=== PATIENT | female | born 1980 | race Caucasian/White ===

== ENCOUNTER → 2019-12-20 10:23 | Outpatient (BNVA) | payer MEDICAID, SELFPAY | PROVIDERS: Visit Provider Obstetrics & Gynecology | DX: Z32.01 Encounter for pregnancy test, result positive (principal) | CPT/HCPCS: 84702 ==

== ENCOUNTER 2020-02-23 09:58 | Emergency (ER) | payer MEDICAID, SELFPAY ==
[2020-02-23 10:00] VITALS: BP 141/88; PULSE 85; RESP 18; TEMP 36.4; O2SAT 97; BMI 32.8
--- NOTE | 2020-02-23 10:09 | W.ED.ABDPA2 ---
HPI - Abdominal Pain General: Chief Complaint: Abdominal Pain Stated Complaint: RUQ PAIN Time Seen by Provider: 02/23/20 10:06 History of Present Illness: HPI narrative: Patient is a 39-year-old female comes to the ED with abdominal pain, nausea vomiting and diarrhea. Abdominal pain started over 3 months ago. Abdominal pain is in the right upper quadrant of the abdomen. She says it gets worse whenever she eats or drinks anything. She currently rates the pain a 6 out of 10. She started developing diarrhea after she eats food for the past couple days. Patient says she decided to come in today because she is getting tired of dealing with the pain nausea, vomiting and diarrhea right after she eats. Denies fever, chills, chest pain, shortness of breath, dysuria or hematuria. Denies any vaginal bleeding and states that she is 3 days late on her period. Associated Symptoms: Reports diarrhea, nausea and vomiting; Denies chills, constipation, dysuria, fever(s), hematochezia and hematuria Review of Systems Const: Denies: fever(s), chills or fatigue Eyes: Denies: change in vision or eye discomfort ENMT: Denies: throat pain, odynophagia, nasal discharge or nasal congestion Card: Denies: chest pain, palpitations, edema, swelling of feet/ankles, dyspnea on exertion or orthopnea Resp: Denies: dyspnea, productive cough or non-productive cough GI: Reports: abdominal pain, nausea, vomiting and diarrhea; Denies: constipation or hematochezia : Denies: flank pain, dysuria or hematuria Musc: Denies: neck pain, back pain or extremity swelling Skin/Breast: Denies: rash or new lesions Neuro: Denies: headache(s), numbness in extremities or weakness in extremities Physical Exam Const: COMMON NORMALS: no acute distress, patient oriented x3 and alert GENERAL APPEARANCE: cooperative and comfortable NUTRITIONAL APPEARANCE: overweight HENMT: COMMON NORMALS: normocephalic HEAD & SCALP: normocephalic MOUTH: Normal oral and palatal mucosa present THROAT: posterior oropharynx normal and uvula midline Eye: COMMON NORMALS: Equal, round and reactive pupils present PUPIL: Yes Equal, round and reactive pupils present Neck/C-Spine: COMMON NORMALS: supple GENERAL: Yes normal visual inspection Resp: COMMON NORMALS: normal respiratory effort, No retractions, No use of accessory muscles and clear to auscultation bilaterally AUSCULTATION: clear to auscultation bilaterally Cardio: COMMON NORMALS: regular rate, regular rhythm, S1 normal heart sound present, S2 normal heart sound present, No gallops present (Cardio), No clicks present (Cardio), No murmurs present (Cardio) and Peripheral pulses 2+ throughout RATE: regular rate RHYTHM: regular rhythm HEART SOUNDS: S1 normal heart sound present and S2 normal heart sound present PERIPHERAL PULSES: Peripheral pulses 2+ throughout GI: COMMON NORMALS: Normal to inspection, nondistended, normoactive bowel sounds present, Soft to palpation and no masses PALPATION: Yes Soft to palpation and Yes Tenderness to palpation present (GI) Details: RUQ (Positive Cho's test. No peritoneal signs) : COMMON NORMALS: Yes no CVA tenderness BLADDER/KIDNEY EXAM: Yes no CVA tenderness Back/Pelvis: COMMON NORMALS: no CVA tenderness Extremity: COMMON NORMALS: normal to inspection and no pedal edema Neuro: COMMON NORMALS: patient oriented x3 SENSORIUM/ORIENTATION: Yes alert GAIT: Yes Normal gait present Skin: GENERAL SKIN EXAM: dry skin Course Reevaluation(s): Reevaluation #1: After patient received IV fluids, Zofran and morphine her symptoms greatly improved. I went in and told patient to about lab results and positive test. Patient seemed excited about positive test. She stated she will contact her OB doctor after discharge to set up an appointment. Vital Signs: Vital signs: Vital Signs Temperature 97.5 F L 02/23/20 10:00 Pulse Rate 86 02/23/20 12:43 Respiratory Rate 18 02/23/20 12:43 Blood Pressure 135/87 02/23/20 12:43 Pulse Oximetry 98 02/23/20 12:43 MDM - Abdominal Pain MDM Narrative: Medical decision making narrative: Patient is a 39-year-old female who comes to the ED with right upper quadrant abdominal pain, nausea/vomiting and diarrhea. Patient says she has been having the symptoms for over 3 months. Patient had positive Cho sign. CBC, CMP and UA were unremarkable. Lipase 38 and hCG was positive. Ultrasound of the gallbladder showed no bladder wall thickening and normal common bile duct. Patient was diagnosed with biliary colic and positive test. Patient was given IV fluids, Zofran and morphine while here in the ED and her symptoms greatly improved. I placed an order with case management patient follow-up with general surgery. I told patient to contact her OB doctor after discharge to set up an appointment. Patient was discharged with Mirella and she stated she did not want any narcotic pain meds since she is . She says she will just take Tylenol for any biliary colic. Return to ED precautions given. Patient understood and agree with plan. Lab Data: Attestation: I reviewed the patient's lab results. Labs: Lab Results 02/23/20 02/23/20 02/23/20 Range/Units 11:20 11: 11:20 WBC 7.3 (4.0-10.0) 10^3/ uL RBC 4.83 (4.1-5.3) 10^6/u L Hgb 12.3 (11.5-15.3) g/dL Hct 38.5 (37.0-47.0) % MCV 79.7 L (81-99) fL MCH 25.5 L (28.0-34.0) pg MCHC 31.9 (30.0-36.0) g/dL RDW 15.7 H (12.1-15.1) % Plt Count 259 (130-400) 10^3/c mm MPV 11.5 H (7.4-10.4) fL Neut % (Auto) 54.6 % Lymph % (Auto) 33.4 % Randall % (Auto) 9.5 % Eos % (Auto) 1.4 % Baso % (Auto) 0.8 % Neut # (Auto) 4.00 (1.8-7.7) 10^3/u L Lymph # (Auto) 2.5 (0.8-4.8) 10^3/u L Randall # (Auto) 0.7 (0.2-0.9) 10^3/u L Eos # (Auto) 0.1 (0.0-0.8) 10^3/u L Baso # (Auto) 0.1 (0.0-0.1) 10^3/u L Nucleated RBC % (a uto) 0 % Nucleated RBCs # 0.0 /100WBC Sodium 135 L (136-145) mmol/L Potassium 4.0 (3.5-5.1) mmol/L Chloride 102 (98-107) mmol/L Carbon Dioxide 25 (22-29) mmol/L Anion Gap 12.0 (5-19) BUN 10 (6-20) mg/dL Creatinine 0.7 (0.5-0.9) mg/dL GFR Calculation 93.2 (90-130) mL/min Glucose 96 (65-115) mg/dL Calculated Osmolal ity 279 L (285-295) mOsm/k g Calcium 9.1 (8.5-10.5) mg/dL Total Bilirubin 0.5 (0.15-1.2) mg/dL AST 17 (0-32) U/L ALT 18 (0-33) U/L Alkaline Phosphata se 79 (35-105) IU/L Total Protein 6.6 (6.6-8.7) g/dL Albumin 4.0 (3.5-5.2) g/dL Globulin 2.6 (1.3-4.6) g/dL Lipase 38 (13-60) U/L HCG, Qual Positive H (Negative) Urine Color (Yellow) Urine Appearance (CLEAR) Urine pH (5-7) Ur Specific Gravit y (1.005-1.030) Urine Protein (Negative) Urine Glucose (UA) (Normal) Urine Ketones (Negative) Urine Blood (Negative) Urine Nitrate (Negative) Urine Bilirubin (Negative) Urine Urobilinogen (Negative) mg/dL Ur Leukocyte Jennifer ase (Negative) Urine RBC (0-2) /hpf Urine WBC (0-5) /hpf Ur Squamous Epith Cells (0-5) /hpf Amorphous Sediment Urine Bacteria (NONE) /hpf 02/23/20 Range/Units 11:25 WBC (4.0-10.0) 10^3/ uL RBC (4.1-5.3) 10^6/u L Hgb (11.5-15.3) g/dL Hct (37.0-47.0) % MCV (81-99) fL MCH (28.0-34.0) pg MCHC (30.0-36.0) g/dL RDW (12.1-15.1) % Plt Count (130-400) 10^3/c mm MPV (7.4-10.4) fL Neut % (Auto) % Lymph % (Auto) % Randall % (Auto) % Eos % (Auto) % Baso % (Auto) % Neut # (Auto) (1.8-7.7) 10^3/u L Lymph # (Auto) (0.8-4.8) 10^3/u L Randall # (Auto) (0.2-0.9) 10^3/u L Eos # (Auto) (0.0-0.8) 10^3/u L Baso # (Auto) (0.0-0.1) 10^3/u L Nucleated RBC % (a uto) % Nucleated RBCs # /100WBC Sodium (136-145) mmol/L Potassium (3.5-5.1) mmol/L Chloride (98-107) mmol/L Carbon Dioxide (22-29) mmol/L Anion Gap (5-19) BUN (6-20) mg/dL Creatinine (0.5-0.9) mg/dL GFR Calculation (90-130) mL/min Glucose (65-115) mg/dL Calculated Osmolal ity (285-295) mOsm/k g Calcium (8.5-10.5) mg/dL Total Bilirubin (0.15-1.2) mg/dL AST (0-32) U/L ALT (0-33) U/L Alkaline Phosphata se (35-105) IU/L Total Protein (6.6-8.7) g/dL Albumin (3.5-5.2) g/dL Globulin (1.3-4.6) g/dL Lipase (13-60) U/L HCG, Qual (Negative) Urine Color Yellow (Yellow) Urine Appearance Clear (CLEAR) Urine pH 7 (5-7) Ur Specific Gravit y 1.010 (1.005-1.030) Urine Protein Neg (Negative) Urine Glucose (UA) Norm (Normal) Urine Ketones Negative (Negative) Urine Blood Neg (Negative) Urine Nitrate Negative (Negative) Urine Bilirubin Neg (Negative) Urine Urobilinogen Neg (Negative) mg/dL Ur Leukocyte Jennifer ase Negative (Negative) Urine RBC None (0-2) /hpf Urine WBC 0-4 H (0-5) /hpf Ur Squamous Epith Cells 25-40 H (0-5) /hpf Amorphous Sediment Not Reportable Urine Bacteria 3+ H (NONE) /hpf Imaging Data ^: US: Attestation: I personally reviewed and interpreted this imaging study as follows: Radiologist's impression: [address] [place] [address] Ultrasound Report Signed Patient: Miriam Briscoe Unit #: [id number] : [id number] Age/Sex: 39 / F ADM Date: 02/23/20 Loc: ER Room/Bed: Attending Dr: Ordering Provider/Ordering MD: Joey Goss Date of Service: 02/23/20 Procedure(s): US gall bladder 61883 Accession Number(s): [id number] Report Number: [id number] WS: [id number] ULTRASOUND ABDOMEN LIMITED CLINICAL INFORMATION: RUQ pain COMPARISON: None. FINDINGS: Liver Size: Normal. Craniocaudal length: 15.6 cm. Echogenicity: Diffuse fatty infiltration Surface nodularity: None. Mass (size and location): None. Bile ducts Intrahepatic ducts: Normal. Common bile duct diameter: 0.5 cm. Gallbladder Contracted Gallstones: None. Gallbladder sludge: None. Gallbladder wall thickening: None. Pericholecystic fluid: None. Sonographic Cho sign: Absent. Pancreas Normal as visualized. Right kidney: Normal. Hydronephrosis: None. Size: 11.4 cm x 5.7 cm x 4.8 cm. Abdominal aorta and IVC Visualized portions are normal. Ascites: None. US/US gall bladder [id number] IMPRESSION: 1. Diffuse fatty infiltration the liver. 2. No hydronephrosis in right kidney. 3. Gallbladder is contracted. No wall thickening or edema. Normal common bile duct. Dictated By: Pedro De Dios MD Signed By: Pedro De Dios MD Signed Date/Time: 02/23/20 1102 DD/ 1056 Discharge Plan Discharge Patient Disposition: Home Clinical Impression: Biliary colic, Positive blood test Condition: Stable Prescriptions: New Zofran 4 mg tablet 4 mg PO Q8H Qty: 30 RF: 0 No Action omeprazole 20 mg Capsule,Delayed Release(Dr/Ec) 20 mg PO DAILY RF: 0 Lexapro 20 mg Tablet 20 mg PO DAILY RF: 0 Discharge Orders: Discharge Order (Routine); Ordered 02/23/20 Ordered By: Joey Goss Referrals: [facility] [Other] Discharge Diet: Advance as tolerated Discharge Activity: Increase activity as tolerated Patient Instructions: (ED), Biliary Colic (ED) Activity Restrictions/Additional Instructions: Follow-up with medical provider as directed. Case management should be contacting you in the next several days set up an appointment with general surgery. Contact OB doctor to set up appointment for evaluation for positive test. take medications as prescribed. Take Tylenol for pain. Return to the ER or your medical provider if condition worsens. Please read and understand discharge instructions. If any questions, please ask. Discharge Date/Time: 02/23/20 12:44 Coding Level of Care Code ED [employer] for Jj Fwd Exam Comprehensive
--- NOTE | 2020-02-23 10:15 | US_ITS ---
WS: [id number] ULTRASOUND ABDOMEN LIMITED CLINICAL INFORMATION: RUQ pain COMPARISON: None. FINDINGS: Liver Size: Normal. Craniocaudal length: 15.6 cm. Echogenicity: Diffuse fatty infiltration Surface nodularity: None. Mass (size and location): None. Bile ducts Intrahepatic ducts: Normal. Common bile duct diameter: 0.5 cm. Gallbladder Contracted Gallstones: None. Gallbladder sludge: None. Gallbladder wall thickening: None. Pericholecystic fluid: None. Sonographic Cho sign: Absent. Pancreas Normal as visualized. Right kidney: Normal. Hydronephrosis: None. Size: 11.4 cm x 5.7 cm x 4.8 cm. Abdominal aorta and IVC Visualized portions are normal. Ascites: None. US/US gall bladder [id number] IMPRESSION: 1. Diffuse fatty infiltration the liver. 2. No hydronephrosis in right kidney. 3. Gallbladder is contracted. No wall thickening or edema. Normal common bile duct.
[2020-02-23] MEDS: sodium chloride 0.9% 1,000 ML 999 ML IV (11:29)
[2020-02-23] MEDS: ondansetron 2 mg/ML SDV 2 mL 4 MG IVP (11:32)
[2020-02-23 11:34] VITALS: RESP 20; O2SAT 99
[2020-02-23] MEDS: morphine 4 mg/mL SDV 1 mL 2 MG IVP (11:34)
[2020-02-23 11:52] LABS: Basophils # 0.1 10^3/uL (0.0-0.1); Basophils % 0.8 %; Eosinophils # 0.1 10^3/uL (0.0-0.8); Eosinophils % 1.4 %; Hematocrit 38.5 % (37.0-47.0); Hemoglobin 12.3 g/dL (11.5-15.3); Lymphocytes # 2.5 10^3/uL (0.8-4.8); Lymphocytes % 33.4 %; Mean Corpuscular HGB Conc 31.9 g/dL (30.0-36.0); Mean Corpuscular Hemoglobin 25.5 pg (28.0-34.0); Mean Corpuscular Volume 79.7 fL (81-99); Mean Platelet Volume 11.5 fL (7.4-10.4); Monocytes # 0.7 10^3/uL (0.2-0.9); Monocytes % 9.5 %; Neutrophils % 54.6 %; Nucleated Red Blood Cells % 0 %; Platelet Count 259 10^3/cmm (130-400); Red Blood Count 4.83 10^6/uL (4.1-5.3); Red Cell Distribution Width 15.7 % (12.1-15.1); White Blood Count 7.3 10^3/uL (4.0-10.0)
[2020-02-23 12:08] LABS: HCG, Serum Qual Positive (Negative)
[2020-02-23 12:11] LABS: Bilirubin Urine Neg (Negative); Blood Urine Neg (Negative); Glucose Urine UA Norm (Normal); Ketones Urine Negative (Negative); Leukocyte Esterase Urine Negative (Negative); Nitrate Urine Negative (Negative); Protein Urine Neg (Negative); Urine Appearance Clear (CLEAR); Urine Color Yellow (Yellow); Urobilinogen Urine Neg (Negative); pH Urine 7 (5-7)
[2020-02-23 12:12] LABS: Alanine Aminotransferase 18 U/L (0-33); Alkaline Phosphatase 79 IU/L (35-105); Aspartate Amino Transferase 17 U/L (0-32); Blood Urea Nitrogen 10 mg/dL (6-20); Calcium 9.1 mg/dL (8.5-10.5); Carbon Dioxide 25 mmol/L (22-29); Chloride 102 mmol/L (98-107); Globulin 2.6 g/dL (1.3-4.6); Glomerular Filtration Rate 93.2 mL/min (90-130); Glucose 96 mg/dL (65-115); Lipase 38 U/L (13-60); Osmolality Calculated 279 mOsm/kg (285-295); Sodium 135 mmol/L (136-145); Total Bilirubin 0.5 mg/dL (0.15-1.2); Total Protein 6.6 g/dL (6.6-8.7)
[2020-02-23 12:17] LABS: Add Urine Culture? No; Bacteria Urine 3+ /hpf; Squamous Epithelial Cell Urine 25-40 /hpf (0-5); WBC Urine 0-4 /hpf (0-5)
--- NOTE | 2020-02-23 12:24 | DCPLANNER ---
project construction manager was asked to refer patient to general surgery. project construction manager emailed [facility] with patient referral. Patients information will be printed and reviewed. Clinic will call patient with appointment information.
[2020-02-23 12:43] VITALS: BP 135/87; PULSE 86; RESP 18; O2SAT 98
--- NOTE | 2020-02-25 13:21 | DCPLANNER ---
integrated logistics support manager called [facility] to confirm if a follow up appointment had been scheduled for patient. integrated logistics support manager was told that clinic called patient to schedule a follow up appointment, and patient declined appointment at this time.
== END 2020-02-23 12:44 | disposition home or self-care (01) ==
PROVIDERS: Emergency Provider Physician Assistant
DX: O26.891 Other specified pregnancy related conditions, first trimester (principal); K80.50 Calculus of bile duct without cholangitis or cholecystitis without obstruction; Z3A.01 Less than 8 weeks gestation of pregnancy
CPT/HCPCS: 12345; 76705; 80053; 81001; 83690; 84703; 85025; 96361; 96374; 96375; 99283; J2270; J2405; J7030

== ENCOUNTER 2020-02-25 12:51 | Emergency (ER) | payer MEDICAID, SELFPAY ==
[2020-02-25 12:59] VITALS: BP 130/71; PULSE 96; RESP 18; O2SAT 98; BMI 32.8
[2020-02-25 15:35] LABS: Add Urine Microscopic? NO
[2020-02-25 15:52] LABS: Bilirubin Urine Neg (Negative); Blood Urine Neg (Negative); Glucose Urine UA Norm (Normal); Ketones Urine Negative (Negative); Leukocyte Esterase Urine Negative (Negative); Nitrate Urine Negative (Negative); Protein Urine Neg (Negative); Urine Appearance Clear (CLEAR); Urine Color Yellow (Yellow); Urobilinogen Urine 1 mg/dL (Negative); pH Urine 5 (5-7)
--- NOTE | 2020-02-25 16:14 | PC.NURSE ---
Rounded on pt in [facility]. Pt pulled back to lab room for blood draw, VS taken.
[2020-02-25 16:20] VITALS: BP 130/89; PULSE 86; RESP 16; O2SAT 100
[2020-02-25 16:35] LABS: Basophils # 0.1 10^3/uL (0.0-0.1); Basophils % 0.8 %; Eosinophils # 0.1 10^3/uL (0.0-0.8); Eosinophils % 1.3 %; Hematocrit 42.2 % (37.0-47.0); Hemoglobin 13.1 g/dL (11.5-15.3); Lymphocytes # 2.9 10^3/uL (0.8-4.8); Lymphocytes % 34.9 %; Mean Corpuscular Hemoglobin 25.2 pg (28.0-34.0); Mean Corpuscular Volume 81.3 fL (81-99); Mean Platelet Volume 11.4 fL (7.4-10.4); Monocytes # 0.7 10^3/uL (0.2-0.9); Monocytes % 8.7 %; Neutrophils # 4.47 10^3/uL (1.8-7.7); Neutrophils % 53.9 %; Nucleated Red Blood Cells % 0 %; Platelet Count 257 10^3/cmm (130-400); Red Blood Count 5.19 10^6/uL (4.1-5.3); Red Cell Distribution Width 15.3 % (12.1-15.1); White Blood Count 8.3 10^3/uL (4.0-10.0)
[2020-02-25 17:01] LABS: HCG, Serum Qual Positive (Negative)
[2020-02-25 17:10] VITALS: BP 120/84; PULSE 96; RESP 16; TEMP 36.9; O2SAT 100
[2020-02-25 17:11] LABS: Alanine Aminotransferase 32 U/L (0-33); Albumin Level 4.4 g/dL (3.5-5.2); Alkaline Phosphatase 85 IU/L (35-105); Anion Gap 13.9 (5-19); Aspartate Amino Transferase 29 U/L (0-32); Blood Urea Nitrogen 7 mg/dL (6-20); Calcium 8.9 mg/dL (8.5-10.5); Carbon Dioxide 23 mmol/L (22-29); Chloride 106 mmol/L (98-107); Globulin 2.8 g/dL (1.3-4.6); Glomerular Filtration Rate 93.2 mL/min (90-130); Glucose 87 mg/dL (65-115); Lipase 30 U/L (13-60); Osmolality Calculated 285 mOsm/kg (285-295); Potassium 3.9 mmol/L (3.5-5.1); Sodium 139 mmol/L (136-145); Total Bilirubin 0.9 mg/dL (0.15-1.2); Total Protein 7.2 g/dL (6.6-8.7)
--- NOTE | 2020-02-25 18:28 | USR_ITS ---
PROCEDURE INFORMATION: Exam: US Abdomen, Limited; Right Upper Quadrant Exam date and time: 02/25/2020 6:49 PM Age: 39 years old Clinical indication: Abdominal pain; Localized; Right upper quadrant (ruq); ; Patient HX: Neg exam TECHNIQUE: Imaging protocol: US abdomen. Real time ultrasound with image documentation. Limited exam focused on the right upper quadrant. COMPARISON: US gall bladder [id number] 02/23/2020 10:37 AM FINDINGS: Liver: Hyperechoic measuring 16.8 cm. Gallbladder: Normal. No gallstones. There is no gallbladder wall thickening. Common bile duct: Normal. No stones. No dilation. Pancreas: Visualized pancreas is unremarkable. Right kidney: Normal. No mass. No hydronephrosis. US/US gall bladder [id number] IMPRESSION: 1. Normal gallbladder. 2. Mildly enlarged hyperechoic liver, consistent with steatosis/steatohepatitis.
--- NOTE | 2020-02-25 18:28 | USR_ITS ---
PROCEDURE INFORMATION: Exam: US First Trimester, Transabdominal and US , Transvaginal Exam date and time: 02/25/2020 6:49 PM Age: 39 years old Clinical indication: complicated by abdominal or pelvic pain; Left lower quadrant; First trimester; Gestational age or lmp: 5w6d; ; Prior surgery; Surgery date: 6+ months; Surgery type: 3 c sections and 1 tubal reversal; Patient HX: TECHNIQUE: Imaging protocol: Real-time transabdominal obstetrical ultrasound of the maternal pelvis and a first trimester , less than 14 weeks 0 days, with image documentation. Transvaginal imaging was used for better evaluation of the fetus, adnexa, and/or cervix. COMPARISON: US gall bladder [id number] 02/23/2020 10:37 AM FINDINGS: Gestation: Single intrauterine gestation. The gestational sac is irregular in shape measuring 1 point 3 x 0.5 x 1.2 cm. Small yolk sac. No definite pole visualized. No heart tones detected. Small 1.3 x 0.9 x 1.3 cm subchorionic hypodensity, most likely a hemorrhage. MATERNAL: Uterus: Unremarkable. Cervix: Closed measuring 5.1 cm in length. Right adnexa: Not ovary not visualized. Left adnexa: Left ovary measures 2.9 x 1.8 x 3.5 cm with normal blood flow and a 2.2 cm follicle or corpus luteal cyst. Intraperitoneal space: No intraperitoneal free fluid. US/US OB <=14 wk fetus w transvag IMPRESSION: 1. Single intrauterine gestation with a yolk sac and no detectable heart tones. The gestational sac is irregular in shape. These findings are not diagnostic of failed intrauterine due to its early age. Viability follow-up with ultrasound in 11 or greater days is recommended. 2. Small subchorionic hemorrhage.
--- NOTE | 2020-02-25 18:32 | ED_ITS ---
HPI - Abdominal Pain General: Chief Complaint: Abdominal Pain Stated Complaint: suspected ectopic Time Seen by Provider: 02/25/20 18:27 Source: patient and family Mode of arrival: ambulatory Limitations: no limitations History of Present Illness: HPI narrative: Miriam is a 39-year-old female who comes in complaining of right upper quadrant abdominal pain bilateral lower quadrant abdominal pain. She states she knows she has sludge in her gallbladder and this is a chronic ongoing problem. Patient also states that she has had pain in her lower abdomen and she has been told she is . She had a tubal ligation with reversal. She denies any vaginal discharge or bleeding. Patient denies any urinary symptoms such as dysuria or frequency or urgency. Patient is uncertain how far along she is but is concerned that she is had an ectopic in the past. Patient denies any exacerbating or alleviating factors she states the pain is constant. Associated Symptoms: Denies chills, coffee ground emesis, constipation, GI cramping, diarrhea, dysuria, fever(s), heartburn, hematochezia, hematuria, hematemesis, melena, syncope and vomiting Related Data: Date of Last Menstrual Period: 11/20/19 Review of Systems Const: Denies: fever(s), chills, body aches, fatigue, malaise or diaphoresis Eyes: Denies: change in vision, blurry vision, photophobia, eye discomfort, eye discharge, eye redness or yellow eyes ENMT: Denies: throat pain, odynophagia, hoarseness, swelling of lips/tongue, ear or mastoid pain, ear discharge, change in hearing or nasal discharge Card: Denies: chest pain, palpitations, irregular heart rhythm, edema, lightheadedness, syncope, pre-syncope, dyspnea on exertion or orthopnea Resp: Denies: dyspnea, productive cough, non-productive cough, wheezing, hemoptysis or chest congestion GI: Denies: vomiting, hematemesis, coffee ground emesis, heartburn, diarrhea, constipation, GI cramping, hematochezia or melena : Denies: flank pain, dysuria, urinary frequency, urinary urgency or hematuria Musc: Denies: neck pain, back pain, extremity pain, extremity swelling, joint pain, joint swelling, joint redness, joint warmth or joint stiffness Skin/Breast: Denies: rash, pruritus, erythema, skin pain or skin tenderness Neuro: Denies: headache(s), numbness in extremities, weakness in extremities, sensory changes, lack of coordination, difficulty walking, dizziness, vertigo, confusion, Slurred speech present or seizure-like activity Connor/Lymph: Denies: easy bruising, easy bleeding, petechiae, purpura or enlarged lymph nodes All/Imm: Denies: urticaria, throat swelling, tongue swelling, facial swelling or acute wheezing PFSH ED PFSH: Medical History (Updated 02/25/20 @ 21:20 by María Escobar) Biliary colic Female Reproductive History: Date of last menstrual period: 11/20/19 Physical Exam Const: COMMON NORMALS: no acute distress, patient oriented x3, no limitations and alert GENERAL APPEARANCE: cooperative HENMT: COMMON NORMALS: normocephalic, atraumatic, external ears normal, EAC's normal and Normal external nose present HEAD & SCALP: normal to inspection, normocephalic and atraumatic FACE & SINUS: normal facial exam and face symmetric NOSE: Normal external nose present and Normal nares present EXTERNAL EAR: Yes external ears normal EXTERNAL AUDITORY CANAL: EAC's normal MOUTH: Normal oral and palatal mucosa present, lip normal and tongue normal Eye: COMMON NORMALS: Equal, round and reactive pupils present and conjunctivae normal GENERAL EYE: appearance normal, both eyes and all related structures ALIGNMENT: Yes alignment normal PERIORBITAL: periorbital findings normal EYELID: eyelids normal CONJUNCTIVA: Yes conjunctivae normal SCLERA: sclerae normal PUPIL: Yes Equal, round and reactive pupils present Neck/C-Spine: COMMON NORMALS: full ROM, no lymphadenopathy, supple, no meningeal signs and no JVD GENERAL: Yes normal visual inspection and Yes trachea midline Chest: COMMONS NORMALS: normal inspection of the chest and normal palpation of entire chest wall Resp: COMMON NORMALS: normal respiratory effort, No retractions, No use of accessory muscles and clear to auscultation bilaterally EFFORT & INSPECTION: Yes able to speak in complete sentences and Yes symmetric chest movement AUSCULTATION: clear to auscultation bilaterally, no crackles, no rales, no rhonchi and no wheezes Cardio: COMMON NORMALS: no JVD, regular rate, regular rhythm, S1 normal heart sound present and S2 normal heart sound present RATE: regular rate RHYTHM: regular rhythm HEART SOUNDS: S1 normal heart sound present, S2 normal heart sound present, no click, no gallops, no murmurs and no rubs GI: COMMON NORMALS: Soft to palpation and No hepatosplenomegaly present PALPATION: Yes Soft to palpation, Yes Tenderness to palpation present (GI) Details: LLQ, RLQ and RUQ, No Guarding due to palpation present (GI), No Rigid due to palpation, Yes No hepatosplenomegaly present, No Hernia present, No Palpable mass present and No Pulsatile mass present : COMMON NORMALS: Yes no CVA tenderness BLADDER/KIDNEY EXAM: Yes no CVA tenderness EXTERNAL FEMALE EXAM: No Hernia present Back/Pelvis: COMMON NORMALS: no CVA tenderness, thoracic and lumbar spine normal to inspection, no thoracic nor lumbar tenderness and thoraco-lumbar ROM normal Extremity: COMMON NORMALS: normal to inspection, full ROM, capillary refill normal, no joint enlargement, no clubbing, cyanosis or edema and no calf tenderness Neuro: COMMON NORMALS: patient oriented x3, CN's II-XII intact bilaterally, moves all extremities, no focal motor deficits and no sensory deficits noted SENSORIUM/ORIENTATION: Yes alert MENINGEAL SIGNS: Yes no meningeal signs SPEECH: speech normal Psych: COMMON NORMALS: mental status grossly normal, Normal thought process present, cooperative, normal affect, speech normal and activity/motor behavior normal SPEECH: Yes normal speech THOUGHT PROCESS: Normal thought process present Skin: COMMON NORMALS: no rashes or lesions noted, turgor normal, no jaundice, no petechiae and no mottling GENERAL SKIN EXAM: no rashes or lesions noted and turgor normal Course Vital Signs: Vital signs: Vital Signs Temperature 98.4 F 02/25/20 17:10 Pulse Rate 73 02/25/20 20:00 Respiratory Rate 16 02/25/20 20:00 Blood Pressure 116/86 02/25/20 20:00 Pulse Oximetry 100 02/25/20 20:00 MDM - Abdominal Pain MDM Narrative: Medical decision making narrative: Patient's pain has resolved here. She is refused an IV, pain medication or any other therapy. She is still refusing a pelvic exam. I believe the patient solely wanted to know if she was having a normal but we do see an intrauterine on exam. Patient now insisting upon going home as she feels better and wants to leave. I think she just wanted an ultrasound to see if she had an intrauterine . Although this time I will discharge her per her request. She understands my work-up is not complete because I have not been able to do a pelvic exam and completed all my labs but she does agree to return should her symptoms worsen. Lab Data: Attestation: I reviewed the patient's lab results. Labs: Lab Results 02/25/20 02/25/20 02/25/20 Range/Units 13:00 16:21 16:21 WBC 8.3 (4.0-10.0) 10^3/ uL RBC 5.19 (4.1-5.3) 10^6/u L Hgb 13.1 (11.5-15.3) g/dL Hct 42.2 (37.0-47.0) % MCV 81.3 (81-99) fL MCH 25.2 L (28.0-34.0) pg MCHC 31.0 (30.0-36.0) g/dL RDW 15.3 H (12.1-15.1) % Plt Count 257 (130-400) 10^3/c mm MPV 11.4 H (7.4-10.4) fL Neut % (Auto) 53.9 % Lymph % (Auto) 34.9 % [place] % (Auto) 8.7 % Eos % (Auto) 1.3 % Baso % (Auto) 0.8 % Neut # (Auto) 4.47 (1.8-7.7) 10^3/u L Lymph # (Auto) 2.9 (0.8-4.8) 10^3/u L [place] # (Auto) 0.7 (0.2-0.9) 10^3/u L Eos # (Auto) 0.1 (0.0-0.8) 10^3/u L Baso # (Auto) 0.1 (0.0-0.1) 10^3/u L Nucleated RBC % (a uto) 0 % Nucleated RBCs # 0.0 /100WBC Sodium 139 (136-145) mmol/L Potassium 3.9 (3.5-5.1) mmol/L Chloride 106 (98-107) mmol/L Carbon Dioxide 23 (22-29) mmol/L Anion Gap 13.9 (5-19) BUN 7 (6-20) mg/dL Creatinine 0.7 (0.5-0.9) mg/dL GFR Calculation 93.2 (90-130) mL/min Glucose 87 (65-115) mg/dL Calculated Osmolal ity 285 (285-295) mOsm/k g Calcium 8.9 (8.5-10.5) mg/dL Total Bilirubin 0.9 (0.15-1.2) mg/dL AST 29 (0-32) U/L ALT 32 (0-33) U/L Alkaline Phosphata se 85 (35-105) IU/L Total Protein 7.2 (6.6-8.7) g/dL Albumin 4.4 (3.5-5.2) g/dL Globulin 2.8 (1.3-4.6) g/dL Lipase 30 (13-60) U/L HCG, Qual (Negative) Ser , Ivy i-Qnt mIU/mL Urine Color Yellow (Yellow) Urine Appearance Clear (CLEAR) Urine pH 5 (5-7) Ur Specific Gravit y 1.010 (1.005-1.030) Urine Protein Neg (Negative) Urine Glucose (UA) Norm (Normal) Urine Ketones Negative (Negative) Urine Blood Neg (Negative) Urine Nitrate Negative (Negative) Urine Bilirubin Neg (Negative) Urine Urobilinogen 1 H (Negative) mg/dL Ur Leukocyte Jennifer ase Negative (Negative) 02/25/20 02/25/20 Range/Units 16:21 16:21 WBC (4.0-10.0) 10^3/ uL RBC (4.1-5.3) 10^6/u L Hgb (11.5-15.3) g/dL Hct (37.0-47.0) % MCV (81-99) fL MCH (28.0-34.0) pg MCHC (30.0-36.0) g/dL RDW (12.1-15.1) % Plt Count (130-400) 10^3/c mm MPV (7.4-10.4) fL Neut % (Auto) % Lymph % (Auto) % [place] % (Auto) % Eos % (Auto) % Baso % (Auto) % Neut # (Auto) (1.8-7.7) 10^3/u L Lymph # (Auto) (0.8-4.8) 10^3/u L [place] # (Auto) (0.2-0.9) 10^3/u L Eos # (Auto) (0.0-0.8) 10^3/u L Baso # (Auto) (0.0-0.1) 10^3/u L Nucleated RBC % (a uto) % Nucleated RBCs # /100WBC Sodium (136-145) mmol/L Potassium (3.5-5.1) mmol/L Chloride (98-107) mmol/L Carbon Dioxide (22-29) mmol/L Anion Gap (5-19) BUN (6-20) mg/dL Creatinine (0.5-0.9) mg/dL GFR Calculation (90-130) mL/min Glucose (65-115) mg/dL Calculated Osmolal ity (285-295) mOsm/k g Calcium (8.5-10.5) mg/dL Total Bilirubin (0.15-1.2) mg/dL AST (0-32) U/L ALT (0-33) U/L Alkaline Phosphata se (35-105) IU/L Total Protein (6.6-8.7) g/dL Albumin (3.5-5.2) g/dL Globulin (1.3-4.6) g/dL Lipase (13-60) U/L HCG, Qual Positive H (Negative) Ser , [place] i-Qnt 18384.00 mIU/mL Urine Color (Yellow) Urine Appearance (CLEAR) Urine pH (5-7) Ur Specific Gravit y (1.005-1.030) Urine Protein (Negative) Urine Glucose (UA) (Normal) Urine Ketones (Negative) Urine Blood (Negative) Urine Nitrate (Negative) Urine Bilirubin (Negative) Urine Urobilinogen (Negative) mg/dL Ur Leukocyte Jennifer ase (Negative) Imaging Data ^: US: My impression: Ultrasound gallbladder, tech interpretation -no acute findings. Normal gallbladder. US OB: My impression: Ultrasound pelvis, tech interpretation -5-week 6-day IUP present with a small subchorionic hemorrhage. Left corpus luteum cyst. Normal tubes adnexa. No torsion's. Discharge Plan Discharge Patient Disposition: Home Clinical Impression: Threatened miscarriage in early Abdominal pain Qualifiers: Abdominal location: generalized Qualified Code(s): R10.84 - Generalized abdominal pain Condition: Stable Prescriptions: No Action escitalopram oxalate [Lexapro] 20 mg Tablet 20 mg PO DAILY RF: 0 ondansetron HCl [Zofran] 4 mg tablet 4 mg PO Q8H Qty: 30 RF: 0 Discharge Orders: Discharge Order (Routine); Ordered 02/25/20 Ordered By: María Escobar Referrals: [facility] [Other] Joel Salinas MD [Physician] - 1-3 days Discharge Diet: Advance as tolerated Discharge Activity: Increase activity as tolerated Patient Instructions: Threatened Miscarriage (ED), Abdominal Pain (ED) Activity Restrictions/Additional Instructions: Please return to the ER immediately for any of the signs or symptoms listed on your discharge instruction sheets, worsening/changing of your symptoms, you are not getting better as quickly as expected, or for ANY other cause or concerns. You have refused complete evaluation and exam to evaluate for your complaints. If your symptoms change or worsen or you simply change your mind you are more than welcome to return here to the ER for recheck. Be certain to follow-up with your doctor or establish with the MORTGAGE LOAN ASSISTANT of your choice as soon as possible for recheck. Coding Level of Care Code ED Dial Printer for Chg Fwd Exam Comprehensive
[2020-02-25 18:50] VITALS: BP 112/70; PULSE 81; RESP 18; O2SAT 100
--- NOTE | 2020-02-25 19:00 | PC.NURSE ---
Patient refusing IV and medications at this time [id number]
[2020-02-25 20:00] VITALS: BP 116/86; PULSE 73; RESP 16; O2SAT 100
--- NOTE | 2020-02-25 23:00 | PC.NURSE ---
Leana RN checked room, patient was gone room was empty, waited some time, patient still gone, patient considered eloped, charted in discharge
== END 2020-02-25 23:00 | disposition home or self-care (01) ==
PROVIDERS: Family Medicine; Emergency Provider Emergency Medicine
DX: O20.0 Threatened abortion (principal); Z3A.01 Less than 8 weeks gestation of pregnancy
CPT/HCPCS: 12345; 76705; 76801; 76817; 76856; 80053; 81003; 83690; 84702; 84703; 85025; 99283; 99284

== ENCOUNTER 2020-03-20 13:50 | Emergency (ER) | payer MEDICAID, SELFPAY ==
[2020-03-20 14:22] VITALS: BP 149/83; PULSE 89; RESP 14; TEMP 36.7; O2SAT 97
--- NOTE | 2020-03-20 18:17 | US_ITS ---
WS: [id number] ULTRASOUND ABDOMEN LIMITED CLINICAL INFORMATION: abd pain COMPARISON: None. FINDINGS: Liver Size: Mild hepatomegaly Craniocaudal length: 16.4 cm. Echogenicity: Diffuse fatty infiltration Surface nodularity: None. Mass (size and location): None. Bile ducts Intrahepatic ducts: Normal. Common bile duct diameter: 0.3 cm. Gallbladder Normal. Gallstones: None. Gallbladder sludge: None. Gallbladder wall thickening: None. Pericholecystic fluid: None. Sonographic Cho sign: Absent. Pancreas Not well seen Right kidney: Normal. Hydronephrosis: None. Size: 10.7 cm x 5.5 cm x 5.3 cm. Abdominal aorta and IVC Visualized portions are normal. Ascites: None. US/US gall bladder [id number] IMPRESSION: 1. Mild hepatomegaly with diffuse fatty infiltration. 2. Normal gallbladder. 3. Abdominal ultrasound otherwise unremarkable
--- NOTE | 2020-03-20 18:17 | US_ITS ---
WS: [id number] ULTRASOUND EARLY TECHNIQUE: Transabdominal sonography of the pelvis was performed. Followed by transvaginal sonography to better evaluate the uterus and ovaries. CLINICAL INFORMATION: pain LMP: Beta hCG: Unknown. COMPARISON: None. FINDINGS: UTERUS AND GESTATIONAL SAC Intrauterine gestations: Estimated gestational age: 8 weeks 4 days Yolk sac: 0.42 cm. [place] rump length (CRL): 2.0 cm. heart motion: 195 BPM. Subchorionic hemorrhage: Small amount of subchorionic hemorrhage measuring 2.2 x 1.3 cm OVARIES Right ovary: Normal. Left ovary: Left ovarian cyst measuring 1.8 x 2.1 cm FREE FLUID None. US/US pelvic complete* [id number] IMPRESSION: 1. Single live intrauterine . Small amount of subchorionic hemorrhage measuring 2.2 x 1.3 CM. Recommend short interval follow-up. 2. Estimated gestational age; 8 weeks 4 days with estimated delivery October 26, 2020 3. Left ovarian cyst measuring 1.8 x 2.1 CM. Normal right ovary.
[2020-03-20 19:30] LABS: Basophils # 0.1 10^3/uL (0.0-0.1); Eosinophils % 0.2 %; Hematocrit 40.9 % (37.0-47.0); Lymphocytes # 0.8 10^3/uL (0.8-4.8); Lymphocytes % 15.8 %; Mean Corpuscular HGB Conc 31.8 g/dL (30.0-36.0); Mean Corpuscular Hemoglobin 25.2 pg (28.0-34.0); Mean Corpuscular Volume 79.3 fL (81-99); Mean Platelet Volume 11.4 fL (7.4-10.4); Monocytes # 0.8 10^3/uL (0.2-0.9); Monocytes % 15.4 %; Neutrophils # 3.55 10^3/uL (1.8-7.7); Neutrophils % 67.4 %; Nucleated Red Blood Cells % 0 %; Platelet Count 266 10^3/cmm (130-400); Red Blood Count 5.16 10^6/uL (4.1-5.3); Red Cell Distribution Width 14.7 % (12.1-15.1); White Blood Count 5.3 10^3/uL (4.0-10.0)
[2020-03-20] MEDS: morphine 4 mg/mL SDV 1 mL 5 MG IVP (19:35)
[2020-03-20] MEDS: metoclopramide 5 mg/mL SDV 2 mL 10 MG IV (19:35)
[2020-03-20] MEDS: sodium chloride 0.9% 1,000 ML 999 ML IV (19:35)
[2020-03-20] MEDS: sodium chloride 0.9% 1,000 ML 100 ML IV (19:36)
[2020-03-20 19:38] VITALS: PULSE 78; RESP 18; O2SAT 98
[2020-03-20 19:47] LABS: Alanine Aminotransferase 18 U/L (0-33); Albumin Level 4.3 g/dL (3.5-5.2); Alkaline Phosphatase 80 IU/L (35-105); Anion Gap 16.9 (5-19); Aspartate Amino Transferase 20 U/L (0-32); Blood Urea Nitrogen 7 mg/dL (6-20); Calcium 9.2 mg/dL (8.5-10.5); Carbon Dioxide 21 mmol/L (22-29); Chloride 100 mmol/L (98-107); Glomerular Filtration Rate 111.3 mL/min (90-130); Glucose 85 mg/dL (65-115); Osmolality Calculated 275 mOsm/kg (285-295); Potassium 3.9 mmol/L (3.5-5.1); Sodium 134 mmol/L (136-145); Total Bilirubin 0.9 mg/dL (0.15-1.2); Total Protein 7.3 g/dL (6.6-8.7)
[2020-03-20 19:59] LABS: Lipase 17 U/L (13-60)
--- NOTE | 2020-03-20 20:09 | W.ED.ABDPA2 ---
HPI - Abdominal Pain General: Chief Complaint: Abdominal Pain Stated Complaint: N/V, 8 weeks Time Seen by Provider: 03/20/20 18:17 Source: patient Mode of arrival: ambulatory Limitations: no limitations History of Present Illness: HPI narrative: Miriam is a nice 39-year-old female who comes in with right upper quadrant pain. This started about 3 AM. She is been constant since that time. The patient has associated vomiting. She is also had some vaginal spotting. She is 11, para 4 aborta 6. Patient has any fever or chills. She denies diarrhea constipation. She has a history of sludge in her gallbladder but no history of gallstones. Patient states she feels better when she places a heated pad on her stomach but denies any other exacerbating factors. Sugar of the pain is severe and constant. Patient denies any urinary symptoms such as urinary frequency, urgency or frequency. Associated Symptoms: Reports nausea and vomiting; Denies chills, coffee ground emesis, constipation, GI cramping, diarrhea, dysuria, fever(s), heartburn, hematochezia, hematuria, hematemesis, melena and syncope Related Data: Date of Last Menstrual Period: 11/20/19 Review of Systems Const: Denies: fever(s), chills, body aches, fatigue, malaise or diaphoresis Eyes: Denies: change in vision, blurry vision, photophobia, eye discomfort, eye discharge, eye redness or yellow eyes ENMT: Denies: throat pain, odynophagia, hoarseness, swelling of lips/tongue, ear or mastoid pain, ear discharge, change in hearing or nasal discharge Card: Denies: chest pain, palpitations, irregular heart rhythm, edema, lightheadedness, syncope, pre-syncope, dyspnea on exertion or orthopnea Resp: Denies: dyspnea, productive cough, non-productive cough, wheezing, hemoptysis or chest congestion GI: Reports: abdominal pain, nausea and vomiting; Denies: hematemesis, coffee ground emesis, heartburn, diarrhea, constipation, GI cramping, hematochezia or melena : Denies: flank pain, dysuria, urinary frequency, urinary urgency or hematuria Musc: Denies: neck pain, back pain, extremity pain, extremity swelling, joint pain, joint swelling, joint redness, joint warmth or joint stiffness Skin/Breast: Denies: rash, pruritus, erythema, skin pain or skin tenderness Neuro: Denies: headache(s), numbness in extremities, weakness in extremities, sensory changes, lack of coordination, difficulty walking, dizziness, vertigo, confusion, Slurred speech present or seizure-like activity Connor/Lymph: Denies: easy bruising, easy bleeding, petechiae, purpura or enlarged lymph nodes All/Imm: Denies: urticaria, throat swelling, tongue swelling, facial swelling or acute wheezing PFSH ED PFSH: Medical History Biliary colic Female Reproductive History: Date of last menstrual period: 11/20/19 Physical Exam Const: COMMON NORMALS: no acute distress, patient oriented x3, no limitations and alert GENERAL APPEARANCE: cooperative HENMT: COMMON NORMALS: normocephalic, atraumatic, external ears normal, EAC's normal and Normal external nose present HEAD & SCALP: normal to inspection, normocephalic and atraumatic FACE & SINUS: normal facial exam and face symmetric NOSE: Normal external nose present and Normal nares present EXTERNAL EAR: Yes external ears normal EXTERNAL AUDITORY CANAL: EAC's normal MOUTH: Normal oral and palatal mucosa present, lip normal and tongue normal Eye: COMMON NORMALS: Equal, round and reactive pupils present and conjunctivae normal GENERAL EYE: appearance normal, both eyes and all related structures ALIGNMENT: Yes alignment normal PERIORBITAL: periorbital findings normal EYELID: eyelids normal CONJUNCTIVA: Yes conjunctivae normal SCLERA: sclerae normal PUPIL: Yes Equal, round and reactive pupils present Neck/C-Spine: COMMON NORMALS: full ROM, no lymphadenopathy, supple, no meningeal signs and no JVD GENERAL: Yes normal visual inspection and Yes trachea midline Chest: COMMONS NORMALS: normal inspection of the chest and normal palpation of entire chest wall Resp: COMMON NORMALS: normal respiratory effort, No retractions, No use of accessory muscles and clear to auscultation bilaterally EFFORT & INSPECTION: Yes able to speak in complete sentences and Yes symmetric chest movement AUSCULTATION: clear to auscultation bilaterally, no crackles, no rales, no rhonchi and no wheezes Cardio: COMMON NORMALS: no JVD, regular rate, regular rhythm, S1 normal heart sound present and S2 normal heart sound present RATE: regular rate RHYTHM: regular rhythm HEART SOUNDS: S1 normal heart sound present, S2 normal heart sound present, no click, no gallops, no murmurs and no rubs GI: COMMON NORMALS: Soft to palpation and No hepatosplenomegaly present PALPATION: Yes Soft to palpation, Yes Tenderness to palpation present (GI) Details: RUQ (Mild without rebound or guarding), No Guarding due to palpation present (GI), No Rigid due to palpation, Yes No hepatosplenomegaly present, No Hernia present, No Palpable mass present and No Pulsatile mass present : COMMON NORMALS: Yes no CVA tenderness BLADDER/KIDNEY EXAM: Yes no CVA tenderness EXTERNAL FEMALE EXAM: No Hernia present Back/Pelvis: COMMON NORMALS: no CVA tenderness, thoracic and lumbar spine normal to inspection, no thoracic nor lumbar tenderness and thoraco-lumbar ROM normal Extremity: COMMON NORMALS: normal to inspection, full ROM, capillary refill normal, no joint enlargement, no clubbing, cyanosis or edema and no calf tenderness Neuro: COMMON NORMALS: patient oriented x3, CN's II-XII intact bilaterally, moves all extremities, no focal motor deficits and no sensory deficits noted SENSORIUM/ORIENTATION: Yes alert MENINGEAL SIGNS: Yes no meningeal signs SPEECH: speech normal Psych: COMMON NORMALS: mental status grossly normal, Normal thought process present, cooperative, normal affect, speech normal and activity/motor behavior normal SPEECH: Yes normal speech THOUGHT PROCESS: Normal thought process present Skin: COMMON NORMALS: no rashes or lesions noted, turgor normal, no jaundice, no petechiae and no mottling GENERAL SKIN EXAM: no rashes or lesions noted and turgor normal Course Vital Signs: Vital signs: Vital Signs Temperature 98.0 F 03/20/20 14:22 Pulse Rate 89 03/20/20 20:22 Respiratory Rate 16 03/20/20 20:22 Blood Pressure 132/78 03/20/20 20:22 Pulse Oximetry 98 03/20/20 20:22 MDM - Abdominal Pain MDM Narrative: Medical decision making narrative: 2016 -patient is now refusing to stay and wants to leave. She got her abdominal ultrasound which did show a live which I think now that is all she really wanted to obtain and this was to see if she was still . She has had multiple miscarriages in the past. She refused to wait for any further testing. She says she is not Rh- but is Rh+ but and demanded to leave before I could verify this. She would not wait for any further instructions. I informed the patient that she was leaving AGAINST MEDICAL ADVICE this put her in her at risk of or severe permanent disability by doing so but despite my warnings the patient wanted to leave. The patient did not have any questions and clearly demonstrated the capacity to make these decisions. I did inform the patient verbally she is welcome to return. It is unclear whether she got her discharge instructions or she just left after signing an AMA statement. She did understand implications of this. She also understood she was welcome to return. Patient's not hostile or angry just simply did not want to be here any longer. Again my suspicion is that she just wanted to see that her was normal. Patient would not wait for pelvic exam either. Differential Diagnosis: Differential diagnosis abdominal pain: Likely abdominal pain, calculus of kidney, constipation, gastroenteritis, pancreatitis and small bowel obstruction Medical Records: Attestation: I reviewed the patient's medical records. Lab Data: Attestation: I reviewed the patient's lab results. Labs: Lab Results 03/20/20 03/20/20 03/20/20 Range/Units 19:05 19:22 19:22 WBC 5.3 (4.0-10.0) 10^3/ uL RBC 5.16 (4.1-5.3) 10^6/u L Hgb 13.0 (11.5-15.3) g/dL Hct 40.9 (37.0-47.0) % MCV 79.3 L (81-99) fL MCH 25.2 L (28.0-34.0) pg MCHC 31.8 (30.0-36.0) g/dL RDW 14.7 (12.1-15.1) % Plt Count 266 (130-400) 10^3/c mm MPV 11.4 H (7.4-10.4) fL Neut % (Auto) 67.4 % Lymph % (Auto) 15.8 % [place] % (Auto) 15.4 % Eos % (Auto) 0.2 % Baso % (Auto) 1.0 % Neut # (Auto) 3.55 (1.8-7.7) 10^3/u L Lymph # (Auto) 0.8 (0.8-4.8) 10^3/u L [place] # (Auto) 0.8 (0.2-0.9) 10^3/u L Eos # (Auto) 0.0 (0.0-0.8) 10^3/u L Baso # (Auto) 0.1 (0.0-0.1) 10^3/u L Nucleated RBC % (a uto) 0 % Nucleated RBCs # 0.0 /100WBC Sodium 134 L (136-145) mmol/L Potassium 3.9 (3.5-5.1) mmol/L Chloride 100 (98-107) mmol/L Carbon Dioxide 21 L (22-29) mmol/L Anion Gap 16.9 (5-19) BUN 7 (6-20) mg/dL Creatinine 0.6 (0.5-0.9) mg/dL GFR Calculation 111.3 (90-130) mL/min Glucose 85 (65-115) mg/dL Calculated Osmolal ity 275 L (285-295) mOsm/k g Calcium 9.2 (8.5-10.5) mg/dL Total Bilirubin 0.9 (0.15-1.2) mg/dL AST 20 (0-32) U/L ALT 18 (0-33) U/L Alkaline Phosphata se 80 (35-105) IU/L Total Protein 7.3 (6.6-8.7) g/dL Albumin 4.3 (3.5-5.2) g/dL Globulin 3.0 (1.3-4.6) g/dL Lipase 17 (13-60) U/L Ser , [place]nt 93740.00 mIU/mL Blood Type Rho(D) Type 03/20/20 Range/Units 19:22 WBC (4.0-10.0) 10^3/ uL RBC (4.1-5.3) 10^6/u L Hgb (11.5-15.3) g/dL Hct (37.0-47.0) % MCV (81-99) fL MCH (28.0-34.0) pg MCHC (30.0-36.0) g/dL RDW (12.1-15.1) % Plt Count (130-400) 10^3/c mm MPV (7.4-10.4) fL Neut % (Auto) % Lymph % (Auto) % [place] % (Auto) % Eos % (Auto) % Baso % (Auto) % Neut # (Auto) (1.8-7.7) 10^3/u L Lymph # (Auto) (0.8-4.8) 10^3/u L [place] # (Auto) (0.2-0.9) 10^3/u L Eos # (Auto) (0.0-0.8) 10^3/u L Baso # (Auto) (0.0-0.1) 10^3/u L Nucleated RBC % (a uto) % Nucleated RBCs # /100WBC Sodium (136-145) mmol/L Potassium (3.5-5.1) mmol/L Chloride (98-107) mmol/L Carbon Dioxide (22-29) mmol/L Anion Gap (5-19) BUN (6-20) mg/dL Creatinine (0.5-0.9) mg/dL GFR Calculation (90-130) mL/min Glucose (65-115) mg/dL Calculated Osmolal ity (285-295) mOsm/k g Calcium (8.5-10.5) mg/dL Total Bilirubin (0.15-1.2) mg/dL AST (0-32) U/L ALT (0-33) U/L Alkaline Phosphata se (35-105) IU/L Total Protein (6.6-8.7) g/dL Albumin (3.5-5.2) g/dL Globulin (1.3-4.6) g/dL Lipase (13-60) U/L Ser , [place] i-Qnt mIU/mL Blood Type O Positive Rho(D) Type Positive Imaging Data ^: US: My impression: Ultrasound gallbladder, tech interpretation -normal exam. No stones or sludge. Normal wall thickness. No pericholecystic fluid. Normal common bile duct. US OB: My impression: Ultrasound pelvis, tech interpretation -8-week 5-day intrauterine with a heart rate of 196. Small subchronic hemorrhage. No free fluid. Tubes and ovaries normal without signs of torsion or abnormality. Discharge Plan Discharge Patient Disposition: Left Against Medical Advice Clinical Impression: Threatened miscarriage Abdominal pain Qualifiers: Abdominal location: right upper quadrant Qualified Code(s): R10.11 - Right upper quadrant pain Condition: Stable Prescriptions: No Action 1 tab PO DAILY RF: 0 escitalopram oxalate [Lexapro] 20 mg Tablet 20 mg PO DAILY RF: 0 ondansetron HCl [Zofran] 4 mg tablet 4 mg PO Q8H Qty: 30 RF: 0 Discharge Orders: Discharge Order (Routine); Ordered 03/20/20 Ordered By: María Escobar Referrals: Joel Salinas MD [Physician] - 1-3 days Discharge Diet: Advance as tolerated and Clear Liquid Discharge Activity: Increase activity as tolerated Patient Instructions: Threatened Miscarriage (ED), Abdominal Pain (ED) Activity Restrictions/Additional Instructions: You're leaving AGAINST MEDICAL ADVICE and are at risk for or severe permanent disability by doing so. You are more than welcome to return at any time for recheck and for further evaluation and care suture change you change your mind. 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
--- NOTE | 2020-03-20 20:20 | PC.NURSE ---
patient asked to leave AMA, MD notified, patient updated with MD plan, patient still refused care, patient informed of risks of leaving, patient refused further testing, refused RH testing, refused pelvic exam, patient signed AMA form, IV pulled, patient left with ride
[2020-03-20 20:22] VITALS: BP 132/78; PULSE 89; RESP 16; O2SAT 98
== END 2020-03-20 20:23 | disposition left against medical advice (07) ==
PROVIDERS: Emergency Medicine; Family Medicine; Emergency Provider Emergency Medicine
DX: O20.0 Threatened abortion (principal); Z3A.08 8 weeks gestation of pregnancy; Z53.21 Procedure and treatment not carried out due to patient leaving prior to being seen by health care provider
CPT/HCPCS: 12345; 76705; 76856; 80053; 83690; 84702; 85025; 86900; 96361; 96374; 96375; 99282; 99283; J2270; J2765; J7030

== ENCOUNTER 2020-07-07 22:25 | Emergency (ER) | payer BC, MEDICAID, SELFPAY ==
[2020-07-07 23:20] VITALS: BP 112/75; PULSE 95; RESP 18; TEMP 37.1; O2SAT 97; BMI 32.2
--- NOTE | 2020-07-07 23:32 | USR_ITS ---
PROCEDURE INFORMATION: Exam: US Abdomen, Limited; Right Upper Quadrant Exam date and time: 07/07/2020 11:33 PM Age: 39 years old Clinical indication: Abdominal pain; Acute; ; Additional info: Abd pain TECHNIQUE: Imaging protocol: US abdomen. Real time ultrasound with image documentation. Limited exam focused on the right upper quadrant. COMPARISON: US gall bladder [id number] 03/20/2020 7:01 PM FINDINGS: Liver: Normal. No masses. Gallbladder: Normal. No gallstones. There is no gallbladder wall thickening. Common bile duct: Normal. No stones. No dilation. Pancreas: Visualized pancreas is unremarkable. Right kidney: Normal. No mass. No hydronephrosis. US/US gall bladder [id number] IMPRESSION: No acute findings.
--- NOTE | 2020-07-07 23:33 | ED_ITS ---
HPI - Abdominal Pain General: Chief Complaint: Abdominal Pain Stated Complaint: gallbladder issue Time Seen by Provider: 07/07/20 23:19 Source: patient Mode of arrival: ambulatory Limitations: no limitations History of Present Illness: HPI narrative: Miriam is a 39-year-old female who is currently 24 weeks states she has been having right upper quadrant abdominal pain over the last 2 months. She had an ultrasound 2 months ago that showed sludge and she has an appoint with the surgeon next week as she has had continued pain. States her pain got severe tonight and has had multiple episodes of vomiting. States her pain is worse with food. She has no complaints denies any vaginal bleeding. Patient was cleared by OB before coming to the ER. MD elicited complaint: abdominal pain Associated Symptoms: Reports nausea and vomiting; Denies chills, dysuria and fever(s) Related Data: Date of Last Menstrual Period: 11/20/19 Review of Systems Const: Denies: fever(s), chills, body aches or change in appetite Eyes: Denies: blurry vision or eye discomfort ENMT: Denies: throat pain or dental pain Card: Denies: chest pain Resp: Denies: dyspnea GI: Reports: abdominal pain, nausea and vomiting : Denies: dysuria Musc: Denies: neck pain or back pain Skin/Breast: Denies: rash Neuro: Denies: headache(s) Psych: Denies: depression Connor/Lymph: Denies: easy bruising All/Imm: Denies: urticaria PFSH ED PFSH: Medical History Biliary colic Female Reproductive History: Date of last menstrual period: 11/20/19 Physical Exam Const: COMMON NORMALS: no acute distress, patient oriented x3 and healthy appearing HENMT: COMMON NORMALS: normocephalic and atraumatic HEAD & SCALP: normocephalic and atraumatic Eye: COMMON NORMALS: Equal, round and reactive pupils present and EOMs intact bilaterally PUPIL: Yes Equal, round and reactive pupils present Neck/C-Spine: COMMON NORMALS: full ROM and supple Chest: COMMONS NORMALS: normal inspection of the chest and normal palpation of entire chest wall Resp: COMMON NORMALS: normal respiratory effort, No retractions, No use of accessory muscles and clear to auscultation bilaterally AUSCULTATION: clear to auscultation bilaterally Cardio: COMMON NORMALS: regular rate, regular rhythm and No murmurs present (Cardio) RATE: regular rate RHYTHM: regular rhythm GI: COMMON NORMALS: Normal to inspection, nondistended, normoactive bowel sounds present, Soft to palpation, non-tender and no masses PALPATION: Yes Soft to palpation Extremity: COMMON NORMALS: normal to inspection and full ROM Neuro: COMMON NORMALS: patient oriented x3, moves all extremities and no focal motor deficits Psych: COMMON NORMALS: mental status grossly normal, Normal thought process present and cooperative THOUGHT PROCESS: Normal thought process present Skin: COMMON NORMALS: no rashes or lesions noted and no wounds GENERAL SKIN EXAM: no rashes or lesions noted Course Vital Signs: Vital signs: Vital Signs Temperature 98.8 F 07/07/20 23:20 Pulse Rate 95 07/07/20 23:20 Respiratory Rate 18 07/07/20 23:20 Blood Pressure 112/75 07/07/20 23:20 Pulse Oximetry 97 07/07/20 23:20 MDM - Abdominal Pain MDM Narrative: Medical decision making narrative: Patient presents abdominal pain likely gallbladder dysfunction. Her exam here is benign. She is cleared over an OB and had no related complaints. Patient's blood work and ultrasound here are normal. She has any point with a surgeon next week and is to follow-up then. We will place her on Reglan. She is to return if worsening. She understands agrees to plan. Lab Data: Labs: Lab Results 07/07/20 07/07/20 Range/Units 23:33 23:33 WBC 9.0 (4.0-10.0) 10^3/ uL RBC 4.09 L (4.1-5.3) 10^6/u L Hgb 10.9 L (11.5-15.3) g/dL Hct 33.2 L (37.0-47.0) % MCV 81.2 (81-99) fL MCH 26.7 L (28.0-34.0) pg MCHC 32.8 (30.0-36.0) g/dL RDW 14.4 (12.1-15.1) % Plt Count 254 (130-400) 10^3/c mm MPV 11.4 H (7.4-10.4) fL Neut % (Auto) 58.5 % Lymph % (Auto) 31.2 % [place] % (Auto) 8.8 % Eos % (Auto) 0.9 % Baso % (Auto) 0.4 % Neut # (Auto) 5.25 (1.8-7.7) 10^3/u L Lymph # (Auto) 2.8 (0.8-4.8) 10^3/u L [place] # (Auto) 0.8 (0.2-0.9) 10^3/u L Eos # (Auto) 0.1 (0.0-0.8) 10^3/u L Baso # (Auto) 0.0 (0.0-0.1) 10^3/u L Nucleated RBC % (a uto) 0 % Nucleated RBCs # 0.0 /100WBC Sodium 137 (136-145) mmol/L Potassium 3.6 (3.5-5.1) mmol/L Chloride 103 (98-107) mmol/L Carbon Dioxide 23 (22-29) mmol/L Anion Gap 14.6 (5-19) BUN 7 (6-20) mg/dL Creatinine 0.5 (0.5-0.9) mg/dL GFR Calculation 137.4 H (90-130) mL/min Glucose 92 (65-115) mg/dL Calculated Osmolal ity 282 L (285-295) mOsm/k g Calcium 8.6 (8.5-10.5) mg/dL Total Bilirubin 0.4 (0.15-1.2) mg/dL AST 14 (0-32) U/L ALT 8 (0-33) U/L Alkaline Phosphata se 68 (35-105) IU/L Total Protein 6.5 L (6.6-8.7) g/dL Albumin 3.3 L (3.5-5.2) g/dL Globulin 3.2 (1.3-4.6) g/dL Lipase 24 (13-60) U/L Imaging Data ^: US: Attestation: I personally reviewed and interpreted this imaging study as follows: My impression: No gallstones or signs of cholecystitis Discharge Plan Discharge Patient Disposition: Home Clinical Impression: Abdominal pain Qualifiers: Abdominal location: generalized Qualified Code(s): R10.84 - Generalized abdominal pain Condition: Stable Prescriptions: New Reglan 10 mg tablet 10 mg PO Q6H PRN (Reason: nausea and vomiting) Qty: 20 RF: 0 Discharge Orders: Discharge ED (Routine); Ordered 07/08/20 Ordered By: Ethel Polanco Discharge Diet: Advance as tolerated Discharge Activity: Resume usual activity Patient Instructions: Abdominal Pain (ED), Opioid Safety Coding Level of Care Code ED Representative Personal Service for Jj Fwd Exam Comprehensive
[2020-07-07 23:38] LABS: Basophils % 0.4 %; Eosinophils # 0.1 10^3/uL (0.0-0.8); Eosinophils % 0.9 %; Hematocrit 33.2 % (37.0-47.0); Hemoglobin 10.9 g/dL (11.5-15.3); Lymphocytes # 2.8 10^3/uL (0.8-4.8); Lymphocytes % 31.2 %; Mean Corpuscular HGB Conc 32.8 g/dL (30.0-36.0); Mean Corpuscular Hemoglobin 26.7 pg (28.0-34.0); Mean Corpuscular Volume 81.2 fL (81-99); Mean Platelet Volume 11.4 fL (7.4-10.4); Monocytes # 0.8 10^3/uL (0.2-0.9); Monocytes % 8.8 %; Neutrophils # 5.25 10^3/uL (1.8-7.7); Neutrophils % 58.5 %; Nucleated Red Blood Cells % 0 %; Platelet Count 254 10^3/cmm (130-400); Red Blood Count 4.09 10^6/uL (4.1-5.3); Red Cell Distribution Width 14.4 % (12.1-15.1)
[2020-07-07] MEDS: ondansetron 2 mg/ML SDV 2 mL 4 MG IVP (23:40)
[2020-07-07 23:59] LABS: Alanine Aminotransferase 8 U/L (0-33); Albumin Level 3.3 g/dL (3.5-5.2); Alkaline Phosphatase 68 IU/L (35-105); Aspartate Amino Transferase 14 U/L (0-32); Blood Urea Nitrogen 7 mg/dL (6-20); Calcium 8.6 mg/dL (8.5-10.5); Carbon Dioxide 23 mmol/L (22-29); Chloride 103 mmol/L (98-107); Globulin 3.2 g/dL (1.3-4.6); Glomerular Filtration Rate 137.4 mL/min (90-130); Glucose 92 mg/dL (65-115); Lipase 24 U/L (13-60); Osmolality Calculated 282 mOsm/kg (285-295); Sodium 137 mmol/L (136-145); Total Bilirubin 0.4 mg/dL (0.15-1.2); Total Protein 6.5 g/dL (6.6-8.7)
[2020-07-08 00:07] LABS: Anion Gap 14.6 (5-19); Potassium 3.6 mmol/L (3.5-5.1)
[2020-07-08 00:49] VITALS: BP 115/76; PULSE 92; RESP 18; O2SAT 98
== END 2020-07-08 00:49 | disposition home or self-care (01) ==
PROVIDERS: Emergency Provider Emergency Medicine
DX: O26.892 Other specified pregnancy related conditions, second trimester (principal); R10.84 Generalized abdominal pain; Z3A.24 24 weeks gestation of pregnancy
CPT/HCPCS: 76705; 80053; 83690; 85025; 96374; 99283; J2405

== ENCOUNTER 2020-07-07 22:44 | Outpatient (CLI) | payer BC, MEDICAID, SELFPAY ==
[2020-07-07 22:52] VITALS: RESP 15
[2020-07-07 22:53] VITALS: BP 118/66; PULSE 82
[2020-07-07 22:55] VITALS: TEMP 35.7
[2020-07-07 23:10] VITALS: RESP 15
== END 2020-07-07 23:14 | disposition home or self-care (01) ==
LOC: OPOB 22:45 → OBGYN 22:48
PROVIDERS: Visit Provider Family Medicine
DX: O26.899 Other specified pregnancy related conditions, unspecified trimester (principal); Z3A.00 Weeks of gestation of pregnancy not specified; R10.9 Unspecified abdominal pain
CPT/HCPCS: 99211

== ENCOUNTER → 2022-02-13 09:53 | Outpatient (BNVA) | payer BC, MEDICAID, SELFPAY | PROVIDERS: PCP Nurse Practitioner; Visit Provider Nurse Practitioner Family | DX: E55.9 Vitamin D deficiency, unspecified (principal); N92.0 Excessive and frequent menstruation with regular cycle; Z86.2 Personal history of diseases of the blood and blood-forming organs and certain disorders involving the immune mechanism; Z90.3 Acquired absence of stomach [part of]; Z01.419 Encounter for gynecological examination (general) (routine) without abnormal findings; Z12.4 Encounter for screening for malignant neoplasm of cervix | CPT/HCPCS: 80053; 80061; 82306; 82607; 82672; 82728; 83001; 83540; 83550; 84144; 84146; 84403; 84443; 84446; 84590; 85025; 88175 ==

== ENCOUNTER 2022-03-07 08:03 | Oncology outpatient (recurring) (ONCR) | payer BC, MEDICAID, SELFPAY ==
[2022-03-07] MEDS: sodium chloride 0.9% 500 ML 100 ML IV (08:19)
[2022-03-07] MEDS: acetaminophen 325 mg Tablet 650 MG PO (08:22)
[2022-03-07] MEDS: diphenhydrAMINE 50 mg/mL SDV 1mL 25 MG IVP (08:23)
[2022-03-07] MEDS: iron dextran 25 MG in SYRINGE 1 EACH 30 MG IVP (08:41)
[2022-03-07] MEDS: iron dextran 900 MG in sodium chloride 0.9% 1,000 ML 250.75 MG IV (09:32)
== END 2022-03-20 23:59 | disposition home or self-care (01) ==
PROVIDERS: PCP Nurse Practitioner; Visit Provider Internal Medicine Medical Oncology
DX: D50.9 Iron deficiency anemia, unspecified (principal); Z79.899 Other long term (current) drug therapy
CPT/HCPCS: 96365; 96366; 96375; J1200; J1750; J7030; J7040

== ENCOUNTER 2022-03-21 11:03 | Outpatient (CLI) | payer BC, MEDICAID, SELFPAY ==
--- NOTE | 2022-03-21 11:15 | MM_ITS ---
WS: [id number] BILATERAL SCREENING DIGITAL TOMOSYNTHESIS MAMMOGRAM WITH CAD HISTORY: SCREENING COMPARISON: 01/06/2018 and 10/25/2011 Bilateral CC and MLO views with tomosynthesis and synthetic mammography submitted. Computer aided det ection analyzed. Breast composition: There are scattered areas of fibroglandular density. No suspicious masses, microc alcifications or architectural distortion. Benign calcifications RIGHT breast. MM/[place] [id number] IMPRESSION: BI-RADS: 2-Benign FOLLOW UP: 1 Year Follow-up
== END 2022-03-21 11:04 | disposition home or self-care (01) ==
LOC: RAD 11:03
PROVIDERS: PCP Nurse Practitioner Family; Visit Provider Nurse Practitioner Family
DX: Z12.31 Encounter for screening mammogram for malignant neoplasm of breast (principal)
CPT/HCPCS: 77063; 77067

== ENCOUNTER 2022-04-03 12:56 | Outpatient (CLI) | payer BC, MEDICAID, SELFPAY ==
[2022-04-03 13:28] LABS: Basophils # 0.1 10^3/uL (0.0-0.1); Basophils % 1.1 %; Eosinophils # 0.1 10^3/uL (0.0-0.8); Eosinophils % 1.5 %; Hematocrit 40.2 % (37.0-47.0); Hemoglobin 12.8 g/dL (11.5-15.3); Lymphocytes # 3.1 10^3/uL (0.8-4.8); Lymphocytes % 41.3 %; Mean Corpuscular HGB Conc 31.8 g/dL (30.0-36.0); Mean Corpuscular Volume 81.5 fl (81-99); Mean Platelet Volume 11.9 fL (7.4-10.4); Monocytes # 0.6 10^3/uL (0.2-0.9); Monocytes % 8.1 %; Neutrophils % 47.7 %; Nucleated Red Blood Cells % 0 %; Platelet Count 268 10^3/cmm (130-400); Red Blood Count 4.93 10^6/uL (4.1-5.3); Red Cell Distribution Width 18.6 % (12.1-15.1); White Blood Count 7.5 10^3/uL (4.0-10.0)
[2022-04-03 13:53] LABS: Ferritin 197 ng/mL (15-150); Iron 76 ug/dL (37-145); Percent Saturation 34.7 % (20-50); Total Iron Binding Capacity 219 mcg/dl; Unsaturated Iron Binding 143 ug/dL (112-347)
== END 2022-04-03 12:57 | disposition home or self-care (01) ==
LOC: LAB 12:58
PROVIDERS: PCP Nurse Practitioner Family; Visit Provider Internal Medicine Medical Oncology
DX: E61.1 Iron deficiency (principal)
CPT/HCPCS: 36415; 82728; 83540; 83550; 85025

== ENCOUNTER 2022-08-19 10:26 | Emergency (ER) | payer BC, MEDICAID, SELFPAY ==
[2022-08-19] VITALS (13 sets, daily range): BP systolic 92–118; BP diastolic 60–82; PULSE 65–73; RESP 16–18; TEMP 36.6; O2SAT 97–100; BMI 20.3
--- NOTE | 2022-08-19 10:59 | W.ED.ABDPA2 ---
HPI - Abdominal Pain General: Chief Complaint: Abdominal Pain Stated Complaint: abd pain, left side 1xweek Time Seen by Provider: 08/19/22 10:42 Source: patient Mode of arrival: ambulatory History of Present Illness: 42 yo female presents emergency room with left-sided abdominal pain x1 week with several episodes of diarrhea pain is worse with eating. She denies any medication melena hematemesis No dysuria urgency or frequency or hematuria. No fever sweats or chills no recent antibiotics. MD elicited complaint: abdominal pain Onset (ago): week(s) (1) Pain Consistency: constant Location: LUQ and LLQ Severity: moderate Quality: cramping Exacerbating factors: nothing Relieving factors: nothing Associated Symptoms: Reports GI cramping and diarrhea; Denies anorexia, belching, bloating, change in bowel habits, change in stool character, chills, coffee ground emesis, constipation, dyspepsia, dysuria, excessive flatus, fever(s), heartburn, hematochezia, hematuria, hematemesis, fecal incontinence, loose stools, melena, nausea, poor appetite, syncope and vomiting Review of Systems Const: Denies: fever(s) or chills ENMT: Denies: throat pain, ear or mastoid pain, nasal discharge or nasal congestion Card: Denies: syncope Resp: Denies: dyspnea, productive cough or non-productive cough GI: Reports: diarrhea and GI cramping; Denies: nausea, vomiting, hematemesis, coffee ground emesis, heartburn, constipation, bloating, belching, excessive flatus, fecal incontinence, change in bowel habits, change in stool character, hematochezia or melena : Denies: dysuria or hematuria Skin/Breast: Denies: rash or pruritus PFSH ED PFSH: Medical History History of iron deficiency anemia Surgical History History of appendectomy History of History of gastric surgery 2020 - Gastric sleeve History of reversal of tubal ligation History of tubal ligation Family History Other Diabetes Hypertension Denies family history of Colon cancer Ovarian cancer Heart disease Hypercholesteremia Breast cancer Uterine cancer Thyroid disease Stroke Social History Substance/Drug Use: never Physical Exam Const: GENERAL APPEARANCE: cooperative and comfortable ORIENTATION/CONSCIOUSNESS: Yes awake, Yes oriented to person, Yes oriented to place and Yes oriented to time HENMT: COMMON NORMALS: normocephalic, atraumatic and hearing grossly normal bilaterally HEAD & SCALP: normocephalic and atraumatic Resp: COMMON NORMALS: normal respiratory effort, No retractions, No use of accessory muscles and clear to auscultation bilaterally AUSCULTATION: clear to auscultation bilaterally Cardio: COMMON NORMALS: regular rate, regular rhythm and No murmurs present (Cardio) RATE: regular rate RHYTHM: regular rhythm GI: COMMON NORMALS: No hepatosplenomegaly present AUSCULTATION: Yes normoactive bowel sounds PALPATION: Yes Tenderness to palpation present (GI) (Diffuse), No Guarding due to palpation present (GI) and Yes No hepatosplenomegaly present Extremity: COMMON NORMALS: normal to inspection, capillary refill normal, no clubbing, cyanosis or edema, no calf tenderness and no pedal edema Neuro: SENSORIUM/ORIENTATION: Yes oriented to person, Yes oriented to place and Yes oriented to time Skin: COMMON NORMALS: no rashes or lesions noted GENERAL SKIN EXAM: no rashes or lesions noted Course Vital Signs: Vital signs: Vital Signs Temperature 97.9 F 08/19/22 10:41 Pulse Rate 65 08/19/22 13:27 Respiratory Rate 18 08/19/22 11:04 Blood Pressure 92/60 08/19/22 13:27 Pulse Oximetry 99 08/19/22 13:27 Oxygen Delivery Me thod Room Air 08/19/22 13:27 MDM - Abdominal Pain Medical Decision Making Labs and imaging reviewed no acute findings. Patient notes that its worse when she eats. Her symptoms are resolved for the most part now she has previously had a gastric sleeve with no significant fifth pathology noted on her CT. There is no sign of perforation no thickening of the colon no diverticulitis. Urine is negative. Lipase is also normal. We will discharge patient home with Protonix GI diet follow-up with primary care may need EGD if persists Medical Records I reviewed the patient's medical records. Lab Data I reviewed the patient's lab results. 08/19/22 11:02 08/19/22 11:02 Labs/Radiology: Radiology Impressions Abdomen/Pelvis CT 08/19/22 11:07 IMPRESSION: 1. No acute abdominal or pelvic abnormalities are identified. 2. Negative gallbladder. 3. No GI tract obstruction. 4. Prior gastric sleeve. 5. Prior appendectomy. 6. Uterine enlargement with engorgement of the ovarian suspension ligaments. Not likely acute. No thrombus noted in the ovarian veins. Laboratory Results WBC 5.6 10^3/uL (4.0-10.0) 08/19/22 11:02 RBC 5.34 10^6/uL (4.1-5.3) H 08/19/22 11:02 Hgb 15.0 g/dL (11.5-15.3) 08/19/22 11:02 Hct 45.0 % (37.0-47.0) 08/19/22 11:02 MCV 84.3 fl (81-99) 08/19/22 11:02 MCH 28.1 pg (28.0-34.0) 08/19/22 11:02 MCHC 33.3 g/dL (30.0-36.0) 08/19/22 11:02 RDW 13.1 % (12.1-15.1) 08/19/22 11:02 Plt Count 270 10^3/cmm (130-400) 08/19/22 11:02 MPV 10.8 fL (7.4-10.4) H 08/19/22 11:02 Neut % (Auto) 52.4 % 08/19/22 11:02 Lymph % (Auto) 37.7 % 08/19/22 11:02 [place] % (Auto) 7.6 % 08/19/22 11:02 Eos % (Auto) 1.4 % 08/19/22 11:02 Baso % (Auto) 0.7 % 08/19/22 11:02 Neut # (Auto) 2.91 10^3/uL (1.8-7.7) 08/19/22 11:02 Lymph # (Auto) 2.1 10^3/uL (0.8-4.8) 08/19/22 11:02 [place] # (Auto) 0.4 10^3/uL (0.2-0.9) 08/19/22 11:02 Eos # (Auto) 0.1 10^3/uL (0.0-0.8) 08/19/22 11:02 Baso # (Auto) 0.0 10^3/uL (0.0-0.1) 08/19/22 11:02 Nucleated RBC % (auto) 0 % 08/19/22 11:02 Nucleated RBCs # 0.0 /100WBC 08/19/22 11:02 Sodium 138 mmol/L (136-145) 08/19/22 11:02 Potassium 3.9 mmol/L (3.5-5.1) 08/19/22 11:02 Chloride 102 mmol/L (98-107) 08/19/22 11:02 Carbon Dioxide 27 mmol/L (22-29) 08/19/22 11:02 Anion Gap 12.9 (5-19) 08/19/22 11:02 BUN 12 mg/dL (6-20) 08/19/22 11:02 Creatinine 0.6 mg/dL (0.5-0.9) 08/19/22 11:02 GFR Calculation 109.6 mL/min (90-130) 08/19/22 11:02 Glucose 72 mg/dL (65-115) 08/19/22 11:02 Calculated Osmolality 284 mOsm/kg (285-295) L 08/19/22 11:02 Calcium 9.4 mg/dL (8.5-10.5) 08/19/22 11:02 Total Bilirubin 1.0 mg/dL (0.15-1.2) 08/19/22 11:02 AST 21 U/L (0-32) 08/19/22 11:02 ALT 24 U/L (0-33) 08/19/22 11:02 Alkaline Phosphatase 78 U/L (35-105) 08/19/22 11:02 Total Protein 7.5 g/dL (6.6-8.7) 08/19/22 11:02 Albumin 4.6 g/dL (3.5-5.2) 08/19/22 11:02 Globulin 2.9 g/dL (1.3-4.6) 08/19/22 11:02 Lipase 29 U/L (13-60) 08/19/22 11:02 HCG, Qual Negative (Negative) 08/19/22 11:02 Urine Color Yellow (Yellow) 08/19/22 10:53 Urine Appearance Clear (CLEAR) 08/19/22 10:53 Urine pH 6.5 (5-7) 08/19/22 10:53 Ur Specific [place] 1.015 (1.005-1.030) 08/19/22 10:53 Urine Protein Neg (Negative) 08/19/22 10:53 Urine Glucose (UA) Norm (Normal) 08/19/22 10:53 Urine Ketones Negative (Negative) 08/19/22 10:53 Urine Blood Neg (Negative) 08/19/22 10:53 Urine Nitrate Negative (Negative) 08/19/22 10:53 Urine Bilirubin Neg (Negative) 08/19/22 10:53 Urine Urobilinogen Neg mg/dL (Negative) 08/19/22 10:53 Ur Leukocyte Esterase Negative (Negative) 08/19/22 10:53 Discharge Plan Discharge Patient Disposition: Home Clinical Impression: Abdominal pain, H/O gastric sleeve, Gastric ulcer Condition: Stable Prescriptions: New Protonix 40 mg tablet,delayed release (DR/EC) 40 mg PO DAILY Qty: 30 0RF No Action ferrous sulfate [Feosol] 325 mg (65 mg iron) tablet 325 mg PO DAILY cholecalciferol (vitamin D3) 125 mcg (5,000 unit) capsule 125 mcg PO DAILY vitamin B complex [B Complex-Vitamin B12] Tablet 1 tab PO DAILY ascorbate calcium (vitamin C) 500 mg tablet 500 mg PO DAILY magnesium citrate 100 mg capsule 100 mg PO DAILY Saccharomyces boulardii [Daily Probiotic (S. boulardii)] 250 mg capsule 250 mg PO DAILY Discharge Orders: Discharge ED (Routine); Ordered 08/19/22 Ordered By: Jey Pruitt Referrals: Nuzhat Haddad, FINE CHEMICALS OPERATOR [Primary Care Provider] - Discharge Diet: As Directed Discharge Activity: Increase activity as tolerated Patient Instructions: Diet for Stomach Ulcers and Gastritis (ED), Abdominal Pain (ED), Opioid Safety, Pain Management Coding Level of Care Code ED Airplane Cabin Attendant for Jj Chin
--- NOTE | 2022-08-19 11:07 | CT_ITS ---
WS: [id number] CT ABDOMEN AND PELVIS WITH CONTRAST HISTORY: RIGHT upper quadrant pain worse after eating. TECHNIQUE: Imaging performed of the abdomen and pelvis with IV contrast. Single phase imaging of the abdomen. Coronal and sagittal reformats are submitted. All CT scans at [facility] use at [address] one of these dose optimization techniques: automated exposure control; mA and/or kV adjustment per patient size (includes targeted exams where dose is matched to clinical indication); or iterative re construction. IV CONTRAST: Omnipaque 350; 100 mL IV. Oral contrast: No DLP: 376.43 mGy.cm COMPARISON: 12/19/2007 Lower thorax: Lung bases are clear. Heart is normal size. Small hiatal hernia. Liver/biliary system: Normal size. Focal hepatic steatosis along the falciform ligament. Normal janeth l vein. Gallbladder: Normal. No gallstones or wall thickening. No pericholecystic fluid. Pancreas: Normal size pancreas and pancreatic duct. No adjacent inflammation. Spleen: Normal size spleen. No mass or infarct. Adrenal glands: Normal. Right kidney: Normal. Left kidney: Normal. Aorta: Normal. Lymphadenopathy: None. Free fluid: None. GI tract: Status post gastric sleeve. Nondistended stomach. No small bowel obstruction. Tortuous over lapping loops of colon with mild diffuse constipation. Prior appendectomy. Abdominal wall: Unremarkable abdominal wall. No hernia. Pelvis: Enlarged heterogeneous enhancement of the uterus. Uterus measures at least 10.9 cm. Mild flui d distention of the endometrium. Bilateral ovarian suspensory ligament engorgement. Ovaries contain s mall follicles. Bones: Unremarkable. CT/CT abdomen pelvis w con* [id number] IMPRESSION: 1. No acute abdominal or pelvic abnormalities are identified. 2. Negative gallbladder. 3. No GI tract obstruction. 4. Prior gastric sleeve. 5. Prior appendectomy. 6. Uterine enlargement with engorgement of the ovarian suspension ligaments. N ot likely acute. No thrombus noted in the ovarian veins.
[2022-08-19 11:10] LABS: Basophils % 0.7 %; Eosinophils # 0.1 10^3/uL (0.0-0.8); Eosinophils % 1.4 %; Lymphocytes # 2.1 10^3/uL (0.8-4.8); Lymphocytes % 37.7 %; Mean Corpuscular HGB Conc 33.3 g/dL (30.0-36.0); Mean Corpuscular Hemoglobin 28.1 pg (28.0-34.0); Mean Corpuscular Volume 84.3 fl (81-99); Mean Platelet Volume 10.8 fL (7.4-10.4); Monocytes # 0.4 10^3/uL (0.2-0.9); Monocytes % 7.6 %; Neutrophils # 2.91 10^3/uL (1.8-7.7); Neutrophils % 52.4 %; Nucleated Red Blood Cells % 0 %; Platelet Count 270 10^3/cmm (130-400); Red Blood Count 5.34 10^6/uL (4.1-5.3); Red Cell Distribution Width 13.1 % (12.1-15.1); White Blood Count 5.6 10^3/uL (4.0-10.0)
[2022-08-19] MEDS: sodium chloride 0.9% 1,000 ML 999 ML IV ×2 (11:10→11:37)
[2022-08-19 11:11] LABS: Add Urine Microscopic? NO; Charge for UA Resulting for Rev
[2022-08-19 11:13] LABS: Bilirubin Urine Neg (Negative); Blood Urine Neg (Negative); Glucose Urine UA Norm (Normal); Ketones Urine Negative (Negative); Leukocyte Esterase Urine Negative (Negative); Nitrate Urine Negative (Negative); Protein Urine Neg (Negative); Specific Gravity, Urine 1.015 (1.005-1.030); Urine Appearance Clear (CLEAR); Urine Color Yellow (Yellow); Urobilinogen Urine Neg (Negative); pH Urine 6.5 (5-7)
[2022-08-19] MEDS: ondansetron 2 mg/ML SDV 2 mL 4 MG IVP (11:14)
[2022-08-19 11:27] LABS: Alanine Aminotransferase 24 U/L (0-33); Albumin Level 4.6 g/dL (3.5-5.2); Alkaline Phosphatase 78 U/L (35-105); Anion Gap 12.9 (5-19); Aspartate Amino Transferase 21 U/L (0-32); Blood Urea Nitrogen 12 mg/dL (6-20); Calcium 9.4 mg/dL (8.5-10.5); Carbon Dioxide 27 mmol/L (22-29); Chloride 102 mmol/L (98-107); Globulin 2.9 g/dL (1.3-4.6); Glomerular Filtration Rate 109.6 mL/min (90-130); Glucose 72 mg/dL (65-115); Lipase 29 U/L (13-60); Osmolality Calculated 284 mOsm/kg (285-295); Potassium 3.9 mmol/L (3.5-5.1); Sodium 138 mmol/L (136-145); Total Protein 7.5 g/dL (6.6-8.7)
[2022-08-19 11:28] LABS: HCG, Serum Qual Negative (Negative)
[2022-08-19] MEDS: iohexol 350 mg/mL 500 mL Btl (per mL) IV (11:55)
== END 2022-08-19 13:57 | disposition home or self-care (01) ==
PROVIDERS: Physician Assistant; Emergency Provider Family Medicine; PCP Nurse Practitioner Family
DX: K25.9 Gastric ulcer, unspecified as acute or chronic, without hemorrhage or perforation (principal); Z98.84 Bariatric surgery status
CPT/HCPCS: 74177; 80053; 81003; 83690; 84703; 85025; 99285; J2405; J7030; Q9967

== ENCOUNTER 2022-09-07 11:59 | Emergency (ER) | payer BC, MEDICAID, SELFPAY ==
[2022-09-07 12:05] VITALS: BP 146/84; PULSE 89; RESP 18; TEMP 36.8; O2SAT 100
--- NOTE | 2022-09-07 12:07 | ED_ITS ---
HPI - Abdominal Pain General: Chief Complaint: Abdominal Pain Stated Complaint: left side pain Time Seen by Provider: 09/07/22 12:01 History of Present Illness: Ms. Briscoe is a 42-year-old lady presenting to the emergency department for recurrent abdominal pain. She reports history of similar especially over the past month the previous ED evaluation on 08/19 at that time no clear etiology of symptoms was identified. She has had intermittent episodes since that time however today was the worst that it has been. She endorses moderate to severe left upper quadrant pain which is cramping and aching as well as a new component of gas type pain that radiates to the left shoulder. Overall course of symptoms has persisted. No other specific changes in health, exacerbating, or allev iating factors identified. Onset (ago): week(s) Pain Consistency: intermittent Location: LUQ Severity: severe Quality: cramping and fullness Radiation: other (Left shoulder) Migration to: no migration Exacerbating factors: nothing Relieving factors: nothing Associated Symptoms: Reports nausea; Denies constipation, diarrhea, fever(s) and vomiting Review of Systems General: Reports: 10 or more systems reviewed and unremarkable except in HPI and below Const: Denies: fever(s) GI: Reports: nausea; Denies: vomiting, diarrhea or constipation PFSH ED PFSH: Medical History History of iron deficiency anemia Surgical History History of appendectomy History of History of gastric surgery 2020 - Gastric sleeve History of reversal of tubal ligation History of tubal ligation Family History Other Diabetes Hypertension Denies family history of Colon cancer Ovarian cancer Heart disease Hypercholesteremia Breast cancer Uterine cancer Thyroid disease Stroke Social History Substance/Drug Use: never Physical Exam Const: COMMON NORMALS: alert GENERAL APPEARANCE: cooperative and well developed HENMT: COMMON NORMALS: normocephalic and atraumatic HEAD & SCALP: n ormocephalic and atraumatic Eye: COMMON NORMALS: conjunctivae normal CONJUNCTIVA: Yes conjunctivae normal SCLERA: sclerae normal Neck/C-Spine: COMMON NORMALS: supple GENERAL: Yes trachea midline Resp: COMMON NORMALS: clear to auscultation bilaterally EFFORT & INSPECTION: Yes able to speak in complete sentences AUSCULTATION: clear to auscultation bilaterally Cardio: COMMON NORMALS: regular rate and regular rhythm RATE: regular rate RHYTHM: regular rhythm GI: COMMON NORMALS: Soft to palpation PALPATION: Yes Soft to palpation, Yes Tenderness to palpation present (GI) Details: LUQ, No Guarding due to palpation present (GI) and No Rigid due to palpation Extremity: GENERAL: Yes normal exam except as noted and No edema Neuro: COMMON NORMALS: moves all extremities SENSORIUM/ORIENTATION: Yes alert and No Orientation impaired Psych: COMMON NORMALS: mental status grossly normal and Normal thought process present THOUGHT PROCESS: Normal thought process present Course Vital Signs: Vital signs: Vital Signs Temperature 98.2 F 09/07/22 12:05 Pulse Rate 77 09/07/22 13:37 Respiratory Rate 16 09/07/22 13:37 Blood Pressure 146/84 09/07/22 13:37 Pulse Oximetry 100 09/07/22 13:37 Oxygen Delivery Me thod Room Air 09/07/22 13:37 MDM - Abdominal Pain Medical Decision Making 42-year-old lady presenting with abdominal pain. Exam as above. Patient is nontoxic, there is abdominal tenderness without evidence of acute surgical abdomen. EKG demonstrates sinus rhythm with normal axis and intervals, no STEMI. Labs notable for no leukocytosis, normal hemoglobin. Metabolic panel with mild hypoglycemia, patient can adequately tolerate oral intake. T. bili is minimally elevated without elevation in transaminases, alk phos, or lipase. No evidence of urinary tract infection Chest x-ray with no lobar consolidation or pneumothorax. CT with no clear etiology of symptoms, patient does have constipation. Incidental findings discu ssed with patient. During ED course patient treated with analgesia, fluids, antiemetic and had impr ovement. She is able to tolerate p.o. intake. The results of ED evaluation were discussed with the patient including prescriptions and/or symptomatic cares (if applicable) including appropriate and responsible use, followup plan, and return precautions. The patient verbalized understanding and felt safe for discharge. Lab Data 09/07/22 12:17 09/07/22 12:17 Labs/Radiology: Radiology Impressions Abdomen/Pelvis CT 09/07/22 13:18 IMPRESSION: 1. No acute intra-abdominal process. No inflammatory process. No obstruction. 2. Trace/small amount of fluid within the pelvis. Small follicle versus cyst left ovary. 3. Large amount of stool throughout the large bowel. 4. Prior gastric stapling. Chest X-Ray 09/07/22 13:18 IMPRESSION: Lungs are well aerated without a focal area of consolidation. Laboratory Results WBC 5.8 10^3/uL (4.0-10.0) 09/07/22 12:17 RBC 5.04 10^6/uL (4.1-5.3) 09/07/22 12:17 Hgb 14.0 g/dL (11.5-15.3) 09/07/22 12:17 Hct 42.6 % (37.0-47.0) 09/07/22 12:17 MCV 84.5 fl (81-99) 09/07/22 12:17 MCH 27.8 pg (28.0-34.0) L 09/07/22 12:17 MCHC 32.9 g/dL (30.0-36.0) 09/07/22 12:17 RDW 13.2 % (12.1-15.1) 09/07/22 12:17 Plt Count 229 10^3/cmm (130-400) 09/07/22 12:17 MPV 10.9 fL (7.4-10.4) H 09/07/22 12:17 Neut % (Auto) 51.4 % 09/07/22 12:17 Lymph % (Auto) 37.2 % 09/07/22 12:17 [place] % (Auto) 8.1 % 09/07/22 12:17 Eos % (Auto) 1.9 % 09/07/22 12:17 Baso % (Auto) 1.2 % 09/07/22 12:17 Neut # (Auto) 2.97 10^3/uL (1.8-7.7) 09/07/22 12:17 Lymph # (Auto) 2.2 10^3/uL (0.8-4.8) 09/07/22 12:17 [place] # (Auto) 0.5 10^3/uL (0.2-0.9) 09/07/22 12:17 Eos # (Auto) 0.1 10^3/uL (0.0-0.8) 09/07/22 12:17 Baso # (Auto) 0.1 10^3/uL (0.0-0.1) 09/07/22 12:17 Nucleated RBC % (auto) 0 % 09/07/22 12:17 Nucleated RBCs # 0.0 /100WBC 09/07/22 12:17 Sodium 139 mmol/L (136-145) 09/07/22 12:17 Potassium 3.7 mmol/L (3.5-5.1) 09/07/22 12:17 Chloride 104 mmol/L (98-107) 09/07/22 12:17 Carbon Dioxide 25 mmol/L (22-29) 09/07/22 12:17 Anion Gap 13.7 (5-19) 09/07/22 12:17 BUN 10 mg/dL (6-20) 09/07/22 12:17 Creatinine 0.6 mg/dL (0.5-0.9) 09/07/22 12:17 GFR Calculation 109.6 mL/min (90-130) 09/07/22 12:17 Glucose 63 mg/dL (65-115) L 09/07/22 12:17 Calculated Osmolality 285 mOsm/kg (285-295) 09/07/22 12:17 Calcium 9.2 mg/dL (8.5-10.5) 09/07/22 12:17 Total Bilirubin 1.4 mg/dL (0.15-1.2) H 09/07/22 12:17 AST 17 U/L (0-32) 09/07/22 12:17 ALT 16 U/L (0-33) 09/07/22 12:17 Alkaline Phosphatase 62 U/L (35-105) 09/07/22 12:17 Troponin T Baseline 6 ng/L (0-10) 09/07/22 12:17 Troponin T 120 Minute 6.00 ng/L (0-10) 09/07/22 14:17 Delta Troponin T 0 ABS# (0-10) 09/07/22 14:17 Total Protein 6.7 g/dL (6.6-8.7) 09/07/22 12:17 Albumin 4.2 g/dL (3.5-5.2) 09/07/22 12:17 Globulin 2.5 g/dL (1.3-4.6) 09/07/22 12:17 Lipase 25 U/L (13-60) 09/07/22 12:17 HCG, Qual Negative (Negative) 09/07/22 12:17 Urine Color Straw (Yellow) 09/07/22 12:39 Urine Appearance Clear (CLEAR) 09/07/22 12:39 Urine pH 7 (5-7) 09/07/22 12:39 Ur Specific [place] 1.005 (1.005-1.030) 09/07/22 12:39 Urine Protein Neg (Negative) 09/07/22 12:39 Urine Glucose (UA) Norm (Normal) 09/07/22 12:39 Urine Ketones Negative (Negative) 09/07/22 12:39 Urine Blood Neg (Negative) 09/07/22 12:39 Urine Nitrate Negative (Negative) 09/07/22 12:39 Urine Bilirubin Neg (Negative) 09/07/22 12:39 Urine Urobilinogen Norm mg/dL (Negative) 09/07/22 12:39 Ur Leukocyte Esterase Negative (Negative) 09/07/22 12:39 Discharge Plan Discharge Patient Disposition: Home Clinical Impression: Abdominal pain, Constipation Condition: Stable Prescriptions: New oxycodone 5 mg tablet 5 mg PO Q4H PRN (Reason: pain) Qty: 10 0RF Miralax 17 gram powder in packet 17 g PO TID PRN (Reason: constipation) Qty: 30 0RF dicyclomine 10 mg capsule 10 mg PO TID PRN (Reason: abdominal pain) Qty: 20 0RF No Action ferrous sulfate [Feosol] 325 mg (65 mg iron) tablet 650 mg PO DAILY cholecalciferol (vitamin D3) 125 mcg (5,000 unit) capsule 125 mcg PO DAILY vitamin B complex [B Complex-Vitamin B12] Tablet 1 tab PO DAILY ascorbate calcium (vitamin C) 500 mg tablet 500 mg PO DAILY Saccharomyces boulardii [Daily Probiotic (S. boulardii)] 250 mg capsule 250 mg PO DAILY Calcium Magnesium 500 mg calcium -250 mg Tablet 1 tab PO DAILY Chewable Iron 30-10-25 mg Tablet,Chewable 1 tab PO DAILY Discharge Orders: Discharge ED (Routine); Ordered 09/07/22 Ordered By: Tung Sinclair Referrals: Nuzhat Haddad, INSERT OPERATOR [Primary Care Provider] - Discharge Diet: Advance as tolerated and Clear Liquid Discharge Activity: Increase activity as tolerated Patient Instructions: Constipation (ED), Abdominal Pain (ED), Opioid Safety Activity Restrictions/Additional Instructions: Thank you for visiting the emergency department. You were seen and evaluated for abdominal pain. The exact cause of your symptoms remains unclear however does not need inpatient management at this time. You were found to have constipation. I recommend MiraLAX 1-3 times per day mixed with electrolyte solution to ensure multiple applesauce consistency stools per day. You may use [id number] medications such as acetaminophen and ibuprofen for pain however please do not exceed the daily recommended dosage as listed on the packaging and please keep in mind that many namebrand medications contain the same active ingredients. Please avoid these medications if previously instructed to do so by another physician due to other underlying medical condition. I will also prescribe oxycodone as needed for severe pain though as discussed this can worsen constipation. I will prescribe Bentyl which can help with spasming type pain. As noted on previous imaging you do have a mildly abnormal appearance of your uterus which may reflect fibroids. I recommend outpatient ultrasound which can be arranged by your primary care provider. I will message case management for follow-up with general surgery for consideration of an endoscopy. Return to the emergency department for worsening or uncontrolled symptoms, inability tolerate medications, or anything else that you are concerned about and feel needs emergency department evaluation. Coding Level of Care Code ED Cardiology Clinical Nurse Specialist for Jj Chin
[2022-09-07 12:29] LABS: Basophils # 0.1 10^3/uL (0.0-0.1); Basophils % 1.2 %; Eosinophils # 0.1 10^3/uL (0.0-0.8); Eosinophils % 1.9 %; Hematocrit 42.6 % (37.0-47.0); Lymphocytes # 2.2 10^3/uL (0.8-4.8); Lymphocytes % 37.2 %; Mean Corpuscular HGB Conc 32.9 g/dL (30.0-36.0); Mean Corpuscular Hemoglobin 27.8 pg (28.0-34.0); Mean Corpuscular Volume 84.5 fl (81-99); Mean Platelet Volume 10.9 fL (7.4-10.4); Monocytes # 0.5 10^3/uL (0.2-0.9); Monocytes % 8.1 %; Neutrophils # 2.97 10^3/uL (1.8-7.7); Neutrophils % 51.4 %; Nucleated Red Blood Cells % 0 %; Platelet Count 229 10^3/cmm (130-400); Red Blood Count 5.04 10^6/uL (4.1-5.3); Red Cell Distribution Width 13.2 % (12.1-15.1); White Blood Count 5.8 10^3/uL (4.0-10.0)
[2022-09-07 12:40] LABS: HCG, Serum Qual Negative (Negative)
--- NOTE | 2022-09-07 12:42 | ECG_ITS ---
[facility] Test Date: 2022-09-07 Pat Name: Miriam Briscoe Department: Room: Gender: Female Union Laborer: : 1980 Requested By: Tung Sinclair Order Number: [id number] Deanne MD: Wilfrido Maxwell M.D. Measurements Intervals [place] Rate: 65 P: 54 NH: 148 QRS: 38 QRSD: 69 T: 65 QT: 363 QTc: 378 Interpretive Statements SINUS RHYTHM MINIMAL ST DEPRESSION [0.025+ mV ST DEPRESSION] Compared to ECG 11/16/2017 15:54:44 ST (T wave) deviation now present Electronically Signed On 09-07-2022 13:59:42 CDT by Wilfrido Maxwell M.D. [id number]
[2022-09-07 12:44] LABS: Alanine Aminotransferase 16 U/L (0-33); Albumin Level 4.2 g/dL (3.5-5.2); Alkaline Phosphatase 62 U/L (35-105); Anion Gap 13.7 (5-19); Aspartate Amino Transferase 17 U/L (0-32); Blood Urea Nitrogen 10 mg/dL (6-20); Calcium 9.2 mg/dL (8.5-10.5); Carbon Dioxide 25 mmol/L (22-29); Chloride 104 mmol/L (98-107); Globulin 2.5 g/dL (1.3-4.6); Glomerular Filtration Rate 109.6 mL/min (90-130); Glucose 63 mg/dL (65-115); Lipase 25 U/L (13-60); Osmolality Calculated 285 mOsm/kg (285-295); Potassium 3.7 mmol/L (3.5-5.1); Sodium 139 mmol/L (136-145); Total Bilirubin 1.4 mg/dL (0.15-1.2); Total Protein 6.7 g/dL (6.6-8.7)
[2022-09-07 12:46] LABS: Add Urine Microscopic? NO; Charge for UA Resulting for Rev
[2022-09-07 12:51] VITALS: BP 146/84; PULSE 63; RESP 16; O2SAT 100
[2022-09-07 12:54] VITALS: RESP 14
[2022-09-07] MEDS: ondansetron 2 mg/ML SDV 2 mL 4 MG IVP (12:54)
[2022-09-07] MEDS: morphine 4 mg/mL SDV 1 mL IVP (12:54)
[2022-09-07] MEDS: sodium chloride 0.9% 1,000 ML 999 ML IV (12:54)
[2022-09-07 12:56] LABS: Bilirubin Urine Neg (Negative); Blood Urine Neg (Negative); Glucose Urine UA Norm (Normal); Ketones Urine Negative (Negative); Leukocyte Esterase Urine Negative (Negative); Nitrate Urine Negative (Negative); Protein Urine Neg (Negative); Specific Gravity, Urine 1.005 (1.005-1.030); Urine Appearance Clear (CLEAR); Urine Color Straw (Yellow); Urobilinogen Urine Norm (Negative); pH Urine 7 (5-7)
[2022-09-07 13:05] LABS: Troponin(5th) Baseline 6 ng/L (0-10)
--- NOTE | 2022-09-07 13:18 | XRR_ITS ---
PROCEDURE INFORMATION: Exam: XR Chest Exam date and time: 09/07/2022 1:35 PM Age: 42 years old Clinical indication: Other: Pain radiating to left shoulder TECHNIQUE: Imaging protocol: Radiologic exam of the chest. Views: 1 view. COMPARISON: CR XR chest 1V [id number] 11/16/2017 7:46 AM FINDINGS: Lungs: Lungs are well aerated without a focal area of consolidation. Pleural spaces: Unremarkable. No pleural effusion. No pneumothorax. Heart/Mediastinum: Unremarkable. No cardiomegaly. Bones/joints: Unremarkable. XR/XR chest 1V portable [id number] IMPRESSION: Lungs are well aerated without a focal area of consolidation.
--- NOTE | 2022-09-07 13:18 | CTR_ITS ---
PROCEDURE INFORMATION: Exam: CT Abdomen And Pelvis With Contrast Exam date and time: 09/07/2022 1:27 PM Age: 42 years old Clinical indication: Abdominal pain; Localized; Left upper quadrant (luq); Additional info: Luq pain TECHNIQUE: Imaging protocol: Computed tomography of the abdomen and pelvis with contrast. Radiation optimization: All CT scans at this facility use at least one of these dose optimization techniques: automated exposure control; mA and/or kV adjustment per patient size (includes targeted exams where dose is matched to clinical indication); or iterative reconstruction. Contrast material: OMNI 350; Contrast volume: 100 ml; Contrast route: INTRAVENOUS (IV); REPORTING DATA: Count of CT and Cardiac NM exams in prior 12 months: This patient has received [address] and 0 known cardiac nuclear medicine studies in the 12 months prior to the current study. COMPARISON: CT abdomen pelvis w con* [id number] 08/19/2022 11:48 AM RADIATION DOSE METRICS: Total DLP (mGy-cm): 412.56 FINDINGS: Lungs: Visualized portions of the lung bases are normal. Liver: Area of low attenuation within the liver adjacent to the fissure of the ligamentum teres is believed to represent focal fat. Gallbladder and bile ducts: Normal. No calcified stones. No ductal dilation. Pancreas: Normal. No ductal dilation. Spleen: Normal. No splenomegaly. Adrenal glands: Normal. No mass. Kidneys and ureters: Normal. No hydronephrosis. Stomach and bowel: Large amount of stool throughout the large bowel. Prior gastric stapling. Appendix: Prior appendectomy Intraperitoneal space: No acute intra-abdominal process. No inflammatory process. No obstruction. Vasculature: Flow within the superior mesenteric artery, celiac trunk and inferior mesenteric arteries. Lymph nodes: Unremarkable. No enlarged lymph nodes. Urinary bladder: Unremarkable as visualized. Reproductive: Probable fibroid uterus. Fluid within the endometrial cavity. Small ovarian cyst/follicle on the left of approximately 13 mm Bones/joints: Osseous structures are unremarkable. No fracture. Soft tissues: Unremarkable. Other findings: trace/small amount of fluid within the pelvis. CT/CT abdomen pelvis w con* [id number] IMPRESSION: 1. No acute intra-abdominal process. No inflammatory process. No obstruction. 2. Trace/small amount of fluid within the pelvis. Small follicle versus cyst left ovary. 3. Large amount of stool throughout the large bowel. 4. Prior gastric stapling.
[2022-09-07] MEDS: fentaNYL 50 mcg/mL INJ 2mL IVP (13:33)
[2022-09-07 13:37] VITALS: BP 146/84; PULSE 77; RESP 16; O2SAT 100
--- NOTE | 2022-09-07 14:43 | ECG_ITS ---
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 Measurements Intervals [place] Rate: 57 P: 41 OR: 157 QRS: 32 QRSD: 81 T: 53 QT: 420 QTc: 412 Interpretive Statements SINUS BRADYCARDIA LOW QRS VOLTAGE IN PRECORDIAL LEADS [QRS DEFLECTION < 1.0 mV IN CHEST LEADS] Compared to ECG 09/07/2022 12:42:04 Low QRS voltage now present Sinus rhythm no longer present ST (T wave) deviation no longer present Electronically Signed On 09-07-2022 20:25:17 CDT by Wilfrido Maxwell M.D. [id number]
[2022-09-07 15:12] LABS: Troponin 5 2HR Delta 0 ABS# (0-10)
== END 2022-09-07 15:21 | disposition home or self-care (01) ==
PROVIDERS: Emergency Provider Emergency Medicine; PCP Nurse Practitioner Family
DX: R10.12 Left upper quadrant pain (principal); K59.00 Constipation, unspecified
CPT/HCPCS: 36415; 71045; 74177; 80053; 81003; 83690; 84484; 84703; 85025; 93005; 96361; 96374; 96375; 99285; J2270; J2405; J3010; J7030; Q9967

== ENCOUNTER → 2023-07-28 11:25 | Outpatient (BNVA) | payer BC, MEDICAID, SELFPAY | PROVIDERS: PCP Nurse Practitioner Family; Visit Provider Family Medicine | DX: Z86.2 Personal history of diseases of the blood and blood-forming organs and certain disorders involving the immune mechanism (principal) | CPT/HCPCS: 85025 ==

== ENCOUNTER → 2024-02-16 13:00 | Outpatient (BNVA) | payer BC, MEDICAID, SELFPAY | PROVIDERS: PCP Nurse Practitioner Family; Visit Provider Nurse Practitioner Family | DX: Z86.2 Personal history of diseases of the blood and blood-forming organs and certain disorders involving the immune mechanism (principal); N92.0 Excessive and frequent menstruation with regular cycle; E61.1 Iron deficiency | CPT/HCPCS: 80053; 82728; 83550; 85025 ==

== ENCOUNTER 2024-03-02 10:12 | Oncology outpatient (recurring) (ONCR) | payer BC, MEDICAID, SELFPAY ==
[2024-03-02 10:27] VITALS: BP 98/68; PULSE 94; RESP 16; TEMP 36.5; O2SAT 99
[2024-03-02] MEDS: diphenhydrAMINE 50 mg/mL SDV 1mL 25 MG IVP (10:37)
[2024-03-02] MEDS: acetaminophen 325 mg Tablet 650 MG PO (10:38)
[2024-03-02] MEDS: iron dextran 25 MG in SYRINGE 1 EACH 30 MG IVP (10:56)
[2024-03-02 11:09] LABS: Anion Gap 13.1 (5-19); Blood Urea Nitrogen 13 mg/dL (6-20); Calcium 8.2 mg/dL (8.5-10.5); Carbon Dioxide 22 mmol/L (22-29); Chloride 109 mmol/L (98-107); Glomerular Filtration Rate 109.1 mL/min (90-130); Glucose 94 mg/dL (65-115); Osmolality Calculated 290 mOsm/kg (285-295); Potassium 4.1 mmol/L (3.5-5.1); Sodium 140 mmol/L (136-145)
[2024-03-02] MEDS: iron dextran 1,000 MG in sodium chloride 0.9% 1,000 ML 250.75 MG IV (11:44)
[2024-03-02 16:06] VITALS: BP 92/61; PULSE 82; RESP 18; TEMP 36.5; O2SAT 98
== END 2024-03-20 23:59 | disposition home or self-care (01) ==
PROVIDERS: Nurse Practitioner Family; PCP Nurse Practitioner Family; Visit Provider Internal Medicine Hematology & Oncology
DX: E61.1 Iron deficiency (principal); Z79.899 Other long term (current) drug therapy; Z53.9 Procedure and treatment not carried out, unspecified reason
CPT/HCPCS: 80048; 96365; 96366; J1200; J1750; J7030

== ENCOUNTER 2024-03-31 09:41 | Oncology outpatient (recurring) (ONCR) | payer BC, MEDICAID, SELFPAY ==
[2024-03-30 08:52] LABS: Basophils # 0.1 10^3/uL (0.0-0.1); Basophils % 1.5 %; Eosinophils % 0.6 %; Hematocrit 39.6 % (36-47); Lymphocytes # 1.8 10^3/uL (0.8-4.8); Mean Corpuscular HGB Conc 33.3 g/dL (30-55); Mean Corpuscular Hemoglobin 27.1 pg (27-33); Mean Corpuscular Volume 81.3 fl (85-98); Mean Platelet Volume 11.3 fL (7.4-10.4); Monocytes # 0.4 10^3/uL (0.2-0.9); Monocytes % 8.5 %; Neutrophils % 51.2 %; Nucleated Red Blood Cells % 0 %; Platelet Count 258 10^3/cmm (157-399); Red Blood Count 4.87 10^6/uL (3.85-5.65); Red Cell Distribution Width 15.4 % (12.1-15.1); White Blood Count 4.69 10^3/uL (3.29-11.43)
[2024-03-30 09:04] LABS: Alanine Aminotransferase 9 U/L (0-33); Albumin Level 4.3 g/dL (3.5-5.2); Alkaline Phosphatase 60 U/L (35-105); Anion Gap 13.7 (5-19); Aspartate Amino Transferase 13 U/L (0-32); Blood Urea Nitrogen 15 mg/dL (6-20); Calcium 9.2 mg/dL (8.5-10.5); Carbon Dioxide 25 mmol/L (22-29); Chloride 106 mmol/L (98-107); Ferritin 311 ng/mL (15-150); Globulin 2.7 g/dL (1.3-4.6); Glomerular Filtration Rate 109.1 mL/min (90-130); Glucose 84 mg/dL (65-115); Iron 79 ug/dL (37-145); Osmolality Calculated 292 mOsm/kg (285-295); Percent Saturation 37.7 % (20-50); Potassium 3.7 mmol/L (3.5-5.1); Sodium 141 mmol/L (136-145); Total Bilirubin 1.1 mg/dL (0.15-1.2); Total Iron Binding Capacity 209 mcg/dl; Unsaturated Iron Binding 130 ug/dL (112-347)
== END 2024-04-20 23:59 | disposition home or self-care (01) ==
PROVIDERS: Nurse Practitioner Family; PCP Nurse Practitioner Family; Visit Provider Internal Medicine Medical Oncology
DX: Z53.9 Procedure and treatment not carried out, unspecified reason
CPT/HCPCS: 36415; 80053; 82728; 83540; 83550; 85025

== ENCOUNTER 2024-04-28 10:38 | Outpatient (CLI) | payer BC, MEDICAID, SELFPAY ==
--- NOTE | 2024-04-28 10:40 | MM_ITS ---
WS: [id number] Bilateral screening 3D tomosynthesis digital mammogram, 04/28/2024 10:40 AM Clinical Data: SCREENING Comparison: 03/21/2022, 01/06/2018, 10/25/2011. Findings: No spiculated masses or clustered calcifications are seen. There are no secondary signs of carcinoma . There are scattered benign calcifications in the right breast. MM/MM scr BI tomosynthesis [id number] Impression: Negative bilateral mammogram unchanged. Recommend annual screening mammograms. BIRADS: 1 - Negative FOLLOW UP: 1 Year Follow-up DENSITY: The breasts are heterogeneously dense, which may obscure small masses. The CAD frequency checker was used
== END 2024-04-28 10:39 | disposition home or self-care (01) ==
LOC: RAD 10:38
PROVIDERS: PCP Nurse Practitioner Family; Visit Provider Nurse Practitioner Family
DX: Z12.31 Encounter for screening mammogram for malignant neoplasm of breast (principal); R92.333 Mammographic heterogeneous density, bilateral breasts; R92.1 Mammographic calcification found on diagnostic imaging of breast
CPT/HCPCS: 77063; 77067

== ENCOUNTER → 2024-05-03 09:03 | Outpatient (BNVA) | payer BC, MEDICAID, SELFPAY | PROVIDERS: PCP Nurse Practitioner Family; Visit Provider Obstetrics & Gynecology | DX: N92.1 Excessive and frequent menstruation with irregular cycle (principal) | CPT/HCPCS: 76830 ==

== ENCOUNTER → 2024-07-19 16:50 | Outpatient (BNVA) | payer BC, MEDICAID, SELFPAY | PROVIDERS: PCP Nurse Practitioner Family; Visit Provider Nurse Practitioner Family | DX: Z86.2 Personal history of diseases of the blood and blood-forming organs and certain disorders involving the immune mechanism (principal) | CPT/HCPCS: 80053; 82728; 83550; 85025 ==

== ENCOUNTER 2025-03-19 15:41 | Emergency (ER) | payer BC, MEDICAID, SELFPAY ==
--- OUTSIDE RECORDS SUMMARY | 2025-03-19 15:46 | XMS_ITS | Patient Health Record ---
Author Organization [facility] Address [address] [place] [address] Care Team Providers Care Drug Inspector Name Role Phone None, None Primary Care Provider Elizabeth Avila [phone] Allergies No Known Allergies Reason For Referral No Information Vital Signs Heart Rate 77 /min 12/02/2024 Blood pressure diastolic 64 mm Hg 12/02/2024 Oximetry 98 % 12/02/2024 Blood pressure systolic 110 mm Hg 12/02/2024 Encounters Encounter Location Date Provider Diagnosis [facility] [address] [place] [address] 12/02/2024 Elizaebth Randall Plan Of Treatment No Information Medical (General) History Surgical History Surgery Date(Month/Year) Gastric Sleeve 3 Cesarian Sections Tubal Ligation and reversal back to tuba l ligation
[2025-03-19 15:47] VITALS: BP 124/70; PULSE 79; RESP 16; TEMP 36.4; O2SAT 99; BMI 16.4
--- NOTE | 2025-03-19 15:59 | XRR_ITS ---
PROCEDURE INFORMATION: Exam: XR Chest Exam date and time: 03/19/2025 4:07 PM Age: 44 years old Clinical indication: Shortness of breath; Prior surgery; Surgery date: 6+ months; Surgery type: Hiatal hernia repair, gastric sleeve; Additional info: Short of breath TECHNIQUE: Imaging protocol: Radiologic exam of the chest. Views: 1 view. COMPARISON: CR XR chest 1V portable [id number] 09/07/2022 1:35 PM FINDINGS: Lungs: Unremarkable. No consolidation. Pleural spaces: Unremarkable. No pleural effusion. No pneumothorax. Heart/Mediastinum: Unremarkable. No cardiomegaly. Bones/joints: Unremarkable. XR/XR chest 1V portable [id number] IMPRESSION: No acute findings.
--- NOTE | 2025-03-19 16:01 | ECG_ITS ---
[facility]: [facility]19 Pat Name: Miriam Briscoe Department: Room: Gender: Female Various Exceptionalities Teacher: : 1980 Requested By: Daxa Gallegos Order Number: [id number] Alicea MD: Steve Lora M.D. Measurements Intervals [place] Rate: 68 P: 48 NV: 154 QRS: 28 QRSD: 76 T: 67 QT: 363 QTc: 386 Interpretive Statements SINUS RHYTHM Compared to ECG 09/07/2022 14:43:53 Sinus bradycardia no longer present Electronically Signed On 03-19-2025 16:34:08 MANAGED CARE LIAISON by Steve Lora M.D. [id number] [id number]
--- NOTE | 2025-03-19 16:02 | W.ED.DIZZY ---
HPI - Dizziness General: Chief Complaint: Dizziness Stated Complaint: dizzy Time Seen by Provider: 03/19/25 15:46 History of Present Illness: HPI Narrative: Patient is 44-year-old female status post gastric bypass, presents to the emergency room due to dizziness. This started on Friday, 3 days ago. Tried to get her in primary care on Friday, and Friday the day before and after Thanksgi. Symptoms are pretty much unchanged. It is worse with movement. She is drinking plenty of water. Patient has a history of iron deficiency anemia in the past, with transfusion is usually given twice a year. Her last transfusion was 14 months ago. Patient states precipitating factors that she started her menstrual cycle today. She has not had one since November, and thought she was perimenopausal, with symptoms of hot flashes. She stated the menstrual cycle is not heavy at this time. She has had heavy issues in the past for which they prescribed control, however she is no longer on this. She is not on ferrous sulfate by mouth due to toleration and absorption issues. No nausea, vomiting. Associated symptoms: Reports palpitations; Denies chest pain, chills, headache(s), nausea, nasal congestion or vomiting Associated neuro symptoms: Deny confusion Related Data Previous Rx's ?Medication ?Instructions ?Recorded ferrous sulfate 325 mg (65 mg 325 mg PO DAILY #90 tabs 03/04/24 iron) tablet potassium chloride 10 mEq 10 meq PO DAILY #90 tabs 03/31/24 tablet,extended release norethindrone 1 mg-ethinyl See Rx Instructions .Route 07/06/24 estradiol 35 mcg tablet (Dasetta) .COMPLEX #84 tabs ketoconazole 2 % shampoo 1 applic topical DAILY 21 days 07/19/24 #120 mL ketoconazole 2 % topical cream 1 applic topical BID 1 month #60 07/19/24 grams terbinafine HCl 250 mg tablet 250 mg PO DAILY 12 weeks #90 tabs 07/19/24 escitalopram oxalate 5 mg tablet See Rx Instructions .Route 08/16/24 .COMPLEX #30 tabs meclizine 50 mg tablet 50 mg PO BID PRN dizziness #20 tabs 03/19/25 Allergies Allergy/AdvReac Type Severity Reaction Status Date / Time No Known Allergies Allergy Verified 03/19/25 15:50 Review of Systems General: Reports: 10 or more systems reviewed and unremarkable except in HPI and below Const: Reports: fatigue; Denies: fever(s), chills or body aches Eyes: Denies: change in vision or blurry vision ENMT: Denies: throat pain, ear or mastoid pain, nasal congestion or post nasal drip Card: Reports: palpitations; Denies: chest pain Resp: Reports: dyspnea; Denies: productive cough or non-productive cough GI: Denies: abdominal pain, nausea, vomiting, diarrhea or constipation : Denies: flank pain or dysuria Musc: Reports: other (toenail discoloration. ); Denies: neck pain or back pain Skin/Breast: Reports: rash; Denies: pruritus Neuro: Reports: dizziness; Denies: headache(s), vertigo or confusion Psych: Denies: anxiety or depression Endo: Denies: polyuria Connor/Lymph: Denies: easy bruising All/Imm: Denies: seasonal rhinorrhea PFSH ED PFSH: Medical History (Updated 03/19/25 @ 17:44 by CARITO Carlton) Fungus infection History of iron deficiency anemia Surgical History History of gastric surgery 2020 - Gastric sleeve History of History of appendectomy History of reversal of tubal ligation History of tubal ligation Family History Father Diabetes Mother Hyperlipidemia Hypertension Grandmother Breast cancer Ovarian cancer Hyperlipidemia Hypertension Diabetes Grandfather Breast cancer Hyperlipidemia Hypertension Diabetes Denies family history of Colon cancer Heart disease Hypercholesteremia Uterine cancer Thyroid disease Stroke Social History Smoking and tobacco/nicotine status: never used tobacco/nicotine Substance/Drug Use: never Physical Exam Const: COMMON NORMALS: no acute distress, average body habitus, patient oriented x3, no limitations and healthy appearing EXAM LIMITATIONS: no altered mental status, no behavioral limitations and no language barrier HENMT: COMMON NORMALS: normocephalic, atraumatic, hearing grossly normal bilaterally, external ears normal, EAC's normal, TM's normal bilaterally, Normal external nose present, Normal nasal mucous membranes and turbinates present, moist oral mucous membranes, oropharynx normal, dentition normal and gingiva normal HEAD & SCALP: normal to inspection, normocephalic and atraumatic NOSE: Normal external nose present and Normal nasal mucous membranes and turbinates present EXTERNAL EAR: Yes external ears normal EXTERNAL AUDITORY CANAL: EAC's normal TYMPANIC MEMBRANE: TM's normal bilaterally Eye: COMMON NORMALS: Equal, round and reactive pupils present, EOMs intact bilaterally, conjunctivae normal, no scleral icterus, no papilledema and normal visual mondragon by confrontation CONJUNCTIVA: Yes conjunctivae normal PUPIL: Yes Equal, round and reactive pupils present DIRECT OPHTHALMOSCOPY: Yes no papilledema Neck/C-Spine: COMMON NORMALS: full ROM, no lymphadenopathy, supple, no meningeal signs and no JVD Lymph: LYMPHATIC: no lymphadenopathy noted Chest: COMMONS NORMALS: normal inspection of the chest and normal palpation of entire chest wall Resp: COMMON NORMALS: normal respiratory effort, No retractions, No use of accessory muscles and clear to auscultation bilaterally AUSCULTATION: clear to auscultation bilaterally Cardio: COMMON NORMALS: no JVD, regular rate, regular rhythm, S1 normal heart sound present, S2 normal heart sound present, No gallops present (Cardio), No clicks present (Cardio), No murmurs present (Cardio) and No rub (Cardio) RATE: regular rate RHYTHM: regular rhythm HEART SOUNDS: S1 normal heart sound present and S2 normal heart sound present GI: COMMON NORMALS: Normal to inspection, nondistended, normoactive bowel sounds present, Soft to palpation, non-tender, No hepatosplenomegaly present and no masses PALPATION: Yes Soft to palpation and Yes No hepatosplenomegaly present : COMMON NORMALS: Yes no CVA tenderness BLADDER/KIDNEY EXAM: Yes no CVA tenderness Back/Pelvis: COMMON NORMALS: no CVA tenderness Extremity: COMMON NORMALS: normal to inspection, full ROM, capillary refill normal, no joint enlargement and no clubbing, cyanosis or edema Neuro: COMMON NORMALS: patient oriented x3, CN's II-XII intact bilaterally and moves all extremities MENINGEAL SIGNS: Yes no meningeal signs Psych: COMMON NORMALS: mental status grossly normal, Normal thought process present, cooperative, normal affect and speech normal SPEECH: Yes normal speech THOUGHT PROCESS: Normal thought process present Skin: COMMON NORMALS: no rashes or lesions noted, no wounds and turgor normal GENERAL SKIN EXAM: no rashes or lesions noted and turgor normal Course Vital Signs: Vital signs: Vital Signs Temperature 97.5 F L 03/19/25 15:47 Pulse Rate 65 03/19/25 17:56 Respiratory Rate 16 03/19/25 17:56 Blood Pressure 98/75 03/19/25 17:56 Pulse Oximetry 100 03/19/25 17:56 Oxygen Delivery Me thod Room Air 03/19/25 17:33 MDM - Dizziness Medical Decision Making Patient is 44-year-old female status post gastric bypass with known iron deficiency anemia, with symptoms of shortness of breath, occasional palpitations, and ongoing dizziness. This is worse with movement. She states these are previous symptoms associated with her iron deficiency anemia. Will check routine blood counts, and type and screen in case she will need packed red blood cells. 500 mL of normal saline was given. I did do a modified orthostatic with having patient stand for 3-4 minutes, and repeat her blood pressure, which was close to her baseline. Medical Records I reviewed the patient's medical records. Lab Data I reviewed the patient's lab results. 03/19/25 16:17 03/19/25 16:17 Radiology Impressions Chest X-Ray 03/19/25 15:59 IMPRESSION: No acute findings. Laboratory Results WBC 6.55 10^3/uL (3.29-11.43) 03/19/25 16:17 RBC 4.76 10^6/uL (3.85-5.65) 03/19/25 16:17 Hgb 13.60 g/dL (11.27-16.99) 03/19/25 16:17 Hct 40.4 % (36-47) 03/19/25 16:17 MCV 84.9 fl (85-98) L 03/19/25 16:17 MCH 28.6 pg (27-33) 03/19/25 16:17 MCHC 33.7 g/dL (30-55) 03/19/25 16:17 RDW 13.1 % (12.1-15.1) 03/19/25 16:17 Plt Count 226 10^3/cmm (157-399) 03/19/25 16:17 MPV 10.7 fL (7.4-10.4) H 03/19/25 16:17 Neut % (Auto) 60.2 % 03/19/25 16:17 Lymph % (Auto) 28.7 % 03/19/25 16:17 [place] % (Auto) 8.9 % 03/19/25 16:17 Eos % (Auto) 1.1 % 03/19/25 16:17 Baso % (Auto) 0.9 % 03/19/25 16:17 Neut # (Auto) 3.95 10^3/uL (1.8-7.7) 03/19/25 16:17 Lymph # (Auto) 1.9 10^3/uL (0.8-4.8) 03/19/25 16:17 [place] # (Auto) 0.6 10^3/uL (0.2-0.9) 03/19/25 16:17 Eos # (Auto) 0.1 10^3/uL (0.0-0.8) 03/19/25 16:17 Baso # (Auto) 0.1 10^3/uL (0.0-0.1) 03/19/25 16:17 Nucleated RBC % (auto) 0 % 03/19/25 16:17 Nucleated RBCs # 0.0 /100WBC 03/19/25 16:17 Sodium 140 mmol/L (136-145) 03/19/25 16:17 Potassium 3.9 mmol/L (3.5-5.1) 03/19/25 16:17 Chloride 105 mmol/L (98-107) 03/19/25 16:17 Carbon Dioxide 25 mmol/L (22-29) 03/19/25 16:17 Anion Gap 13.9 (5-19) 03/19/25 16:17 BUN 9 mg/dL (6-20) 03/19/25 16:17 Creatinine 0.6 mg/dL (0.5-0.9) 03/19/25 16:17 GFR Calculation 108.6 mL/min (90-130) 03/19/25 16:17 Glucose 82 mg/dL (65-115) 03/19/25 16:17 Calculated Osmolality 288 mOsm/kg (285-295) 03/19/25 16:17 Calcium 8.9 mg/dL (8.5-10.5) 03/19/25 16:17 Iron 79 ug/dL (37-145) 03/19/25 16:17 Ferritin 85 ng/mL (15-150) 03/19/25 16:17 Total Bilirubin 1.2 mg/dL (0.15-1.2) 03/19/25 16:17 AST 16 U/L (0-32) 03/19/25 16:17 ALT 14 U/L (0-33) 03/19/25 16:17 Alkaline Phosphatase 63 U/L (35-105) 03/19/25 16:17 Total Protein 6.7 g/dL (6.6-8.7) 03/19/25 16:17 Albumin 4.1 g/dL (3.5-5.2) 03/19/25 16:17 Globulin 2.6 g/dL (1.3-4.6) 03/19/25 16:17 HCG, Qual Negative (Negative) 03/19/25 17:19 Urine Color Yellow (Yellow) 03/19/25 17:19 Urine Appearance Clear (CLEAR) 03/19/25 17:19 Urine pH 5.5 (5-7) 03/19/25 17:19 Ur Specific [place] 1.021 (1.005-1.030) 03/19/25 17:19 Urine Protein Negative (Negative) 03/19/25 17:19 Urine Glucose (UA) Negative (Normal) 03/19/25 17:19 Urine Ketones Negative (Negative) 03/19/25 17:19 Urine Blood 3+ (Negative) A 03/19/25 17:19 Urine Nitrate Negative (Negative) 03/19/25 17:19 Urine Bilirubin Negative (Negative) 03/19/25 17:19 Urine Urobilinogen 1.0 mg/dL (Negative) 03/19/25 17:19 Ur Leukocyte Esterase Trace (Negative) A 03/19/25 17:19 Urine RBC 51-100 /hpf (0-2) H 03/19/25 17:19 Urine WBC 6-10 /hpf (0-5) 03/19/25 17:19 Ur Squamous Epith Cells 0-5 /hpf (0-5) 03/19/25 17:19 Amorphous Sediment Not Reportable 03/19/25 17:19 Urine Bacteria 1+ /hpf (NONE) H 03/19/25 17:19 Hyaline Casts 0.40 /lpf 03/19/25 17:19 Blood Type O Positive 03/19/25 16:17 Rho(D) Type Rh positive 03/19/25 16:17 Antibody Screen Negative 03/19/25 16:17 No radiology studies performed this visit EKG Data EKG 1: Interpretation: Normal sinus rhythm, normal axis, rate of 68. Discharge Plan Discharge Patient Disposition: Home Clinical Impression: Benign paroxysmal positional vertigo Qualifiers: Laterality: bilateral Qualified Code(s): H81.13 - Benign paroxysmal vertigo, bilateral Condition: Stable Prescriptions: New meclizine 50 mg tablet 50 mg PO BID PRN (Reason: dizziness) Qty: 20 0RF No Action ferrous sulfate 325 mg (65 mg iron) tablet 325 mg PO DAILY Qty: 90 1RF potassium chloride 10 mEq tablet extended release 10 meq PO DAILY Qty: 90 0RF terbinafine HCl 250 mg tablet 250 mg PO DAILY 84 Days Qty: 90 0RF ketoconazole 2 % cream 1 applic topical BID 30 Days Qty: 60 2RF ketoconazole 2 % shampoo 1 applic topical DAILY 21 Days Qty: 120 2RF Rx Instructions: leave on for 5 minutes then rinse. use daily for 21 days then use one week each month for maintenance. Dasetta (28) 1-35 mg-mcg tablet See Rx Instructions .ROUTE .COMPLEX Qty: 84 3RF Dose Instruction: Take 1 tablet by mouth once daily Rx Instructions: Take 1 tablet by mouth once daily escitalopram oxalate 5 mg tablet See Rx Instructions .ROUTE .COMPLEX Qty: 30 0RF Dose Instruction: Take 1 tablet by mouth once daily Rx Instructions: Take 1 tablet by mouth once daily Discharge Orders: Discharge ED (Routine); Ordered 03/19/25 Ordered By: Daxa Gallegos Referrals: Nuzhat Haddad NP [Primary Care Provider, Family Practice] Discharge Diet: Usual diet Discharge Activity: Limit activity as instructed Patient Instructions: Benign Paroxysmal Positional Vertigo (ED), Patient Portal & Jake Instructions Activity Restrictions/Additional Instructions: - Return to the ED with worsening symptoms - At the pharmacy: Meclizine. If they are closed, this can be obtained [id number]. As well as a consideration: Lacey root capsules that help with dizziness and nausea. - Call your doctor on Friday for follow-up next week. [facility]. You have been screened and evaluated and felt safe for discharge. Health conditions do change or evolve sometimes and as such it is important that you follow up with your Primary Doctor to be re checked, 3-5 days is a general good time frame for follow up. You are always welcome to return to the ED for re assessment if your symptoms are worsening or you have new concerns Print Language: Burundian Coding Level of Care Code ED Sandwich Counter Attendant for Jj Chin
[2025-03-19 16:24] LABS: Hematocrit 40.4 % (36-47); Hemoglobin 13.60 g/dL (11.27-16.99); Mean Corpuscular HGB Conc 33.7 g/dL (30-55); Mean Corpuscular Hemoglobin 28.6 pg (27-33); Mean Corpuscular Volume 84.9 fl (85-98); Nucleated Red Blood Cells % 0 %; Platelet Count 226 10^3/cmm (157-399); Red Blood Count 4.76 10^6/uL (3.85-5.65); White Blood Count 6.55 10^3/uL (3.29-11.43)
[2025-03-19 16:40] LABS: Alanine Aminotransferase 14 U/L (0-33); Albumin Level 4.1 g/dL (3.5-5.2); Alkaline Phosphatase 63 U/L (35-105); Anion Gap 13.9 (5-19); Aspartate Amino Transferase 16 U/L (0-32); Blood Urea Nitrogen 9 mg/dL (6-20); Calcium 8.9 mg/dL (8.5-10.5); Carbon Dioxide 25 mmol/L (22-29); Chloride 105 mmol/L (98-107); Ferritin 85 ng/mL (15-150); Globulin 2.6 g/dL (1.3-4.6); Glucose 82 mg/dL (65-115); Iron 79 ug/dL (37-145); Osmolality Calculated 288 mOsm/kg (285-295); Potassium 3.9 mmol/L (3.5-5.1); Sodium 140 mmol/L (136-145); Total Protein 6.7 g/dL (6.6-8.7)
[2025-03-19 16:44] VITALS: BP 113/79; PULSE 67; RESP 16; O2SAT 100
[2025-03-19 17:24] LABS: Glucose Urine UA Negative (Normal); Nitrate Urine Negative (Negative); Specific Gravity, Urine 1.021 (1.005-1.030)
[2025-03-19 17:25] LABS: HCG Qualitative Urine. Negative (Negative)
[2025-03-19 17:29] LABS: Add Urine Microscopic? YES
[2025-03-19 17:33] VITALS: BP 92/65; PULSE 61; RESP 16; O2SAT 100
[2025-03-19 17:56] VITALS: BP 98/75; PULSE 65; RESP 16; O2SAT 100
== END 2025-03-19 17:57 | disposition home or self-care (01) ==
PROVIDERS: Emergency Provider Physician Assistant; PCP Nurse Practitioner Family
DX: H91.13 Presbycusis, bilateral (principal)
CPT/HCPCS: 36415; 71045; 80053; 81001; 81025; 82728; 83540; 85025; 86850; 86900; 87077; 87086; 87186; 93005; 96360; 99285; J7040; J8597